=== PATIENT | female | born 1940 | race Caucasian/White ===

== ENCOUNTER → 2020-08-03 10:02 | Outpatient (BNVA) | payer MEDICARE, SELFPAY | PROVIDERS: PCP Family Medicine; Visit Provider Orthopaedic Surgery | DX: M65.332 Trigger finger, left middle finger (principal); M65.342 Trigger finger, left ring finger | CPT/HCPCS: 20550; 99202; J1100 ==

== ENCOUNTER 2020-08-19 10:49 | Outpatient (REF) | payer MEDICARE, SELFPAY ==
--- NOTE | 2020-08-19 10:52 | MM_ITS ---
EXAMINATION: MM SCREENING DIGITAL BREAST TOMOSYNTHESIS, BILATERAL CLINICAL INFORMATION: Screening. Asymptomatic. The lifetime risk of breast cancer based on the Tyrer-Cuzick Model is 3%. COMPARISON: Mammography: 05/21/2019, 05/02/2018, 04/12/2017 TECHNIQUE: Digital breast tomosynthesis is performed in both the craniocaudal and mediolateral oblique views along with computer-aided detection (CAD). Synthesized 2D images are generated from the tomosynthesis. Additional bilateral CC views are provided. FINDINGS: The breasts are almost entirely fatty (ACR BI-RADS breast composition Category a). Background stromal markings are similar to prior studies. There are no significant masses, abnormal calcifications, or other abnormalities. MM/MM tomosynthesis screening BI IMPRESSION: No mammographic evidence of malignancy. ASSESSMENT: BI-RADS 1: Negative RECOMMENDATION: Routine annual mammography screening. This patient's information was entered into a reminder system with a target due date for their next mammogram.
== END 2020-08-19 10:50 | disposition home or self-care (01) ==
LOC: HO.MAMMO 10:49
PROVIDERS: PCP Family Medicine; Visit Provider Family Medicine
DX: Z12.31 Encounter for screening mammogram for malignant neoplasm of breast (principal)
CPT/HCPCS: 77063; 77067

== ENCOUNTER → 2020-10-04 11:00 | Outpatient (BNVA) | payer MEDICARE, SELFPAY | PROVIDERS: PCP Family Medicine; Visit Provider Internal Medicine | DX: J44.9 Chronic obstructive pulmonary disease, unspecified (principal); G47.33 Obstructive sleep apnea (adult) (pediatric) | CPT/HCPCS: 99212 ==

== ENCOUNTER → 2020-10-27 09:54 | Outpatient (BNVA) | payer MEDICARE, SELFPAY | PROVIDERS: PCP Family Medicine; Visit Provider Internal Medicine Endocrinology, Diabetes & Metabolism | DX: M81.0 Age-related osteoporosis without current pathological fracture (principal) | CPT/HCPCS: 96402; 99212 ==

== ENCOUNTER → 2020-11-26 10:50 | Outpatient (BNVA) | payer MEDICARE, SELFPAY | PROVIDERS: PCP Family Medicine; Visit Provider Urology | DX: N32.81 Overactive bladder (principal) | CPT/HCPCS: 51798; 99212 ==

== ENCOUNTER → 2021-01-20 13:45 | Outpatient (BNVA) | payer MEDICARE, SELFPAY | PROVIDERS: PCP Family Medicine; Visit Provider Urology | DX: N32.81 Overactive bladder (principal) | CPT/HCPCS: 52000; 52287; 99212; J0585 ==

== ENCOUNTER → 2021-02-04 15:17 | Outpatient (BNVA) | payer MEDICARE, SELFPAY | PROVIDERS: PCP Family Medicine; Visit Provider Urology | DX: N32.81 Overactive bladder (principal) | CPT/HCPCS: 51798; 99212 ==

== ENCOUNTER 2021-03-22 13:48 | Outpatient (REF) | payer MEDICARE, SELFPAY ==
--- NOTE | ~2021-03-22 | MM_ITS ---
EXAMINATION: BONE DENSITOMETRY CLINICAL INDICATION: Postmenopausal. History of osteopenia. Other specified disorders of bone density and structure. COMPARISON: Previous BD dated 02/21/2019 and baseline BD dated 01/17/2013. TECHNIQUE: Using a [employer] DXA System (software version: 13.1) manufactured by [employer], dual-energy x-ray absorptiometry was performed of the lumbar spine and left hip. The images are of good technical quality. Summary results are attached. FINDINGS: AP SPINE L1-L4: Current: BMD 0.927 g/cm2, Z-score -0.6, T-score -2.1, osteopenia, 6.1% decrease from previous, 2.2% decrease from baseline (<5% change is not significant). Prior: BMD 0.987 g/cm2. Baseline: BMD 0.948 g/cm2. LEFT FEMUR, NECK: Current: BMD 0.736 g/cm2, Z-score -0.2, T-score -2.2, osteopenia. Prior: BMD 0.740 g/cm2. Baseline: BMD 0.714 g/cm2. LEFT FEMUR, TOTAL: Current: BMD 0.878 g/cm2, Z-score 0.7, T-score -1.0, normal, 1.7% increase from previous, 5.4% increase from baseline (<5% change is not significant). Prior: BMD 0.863 g/cm2. Baseline: BMD 0.833 g/cm2. IDENTIFIED RISK FACTORS: History of fracture, (adult). Low body weight. Height loss. Menopause. HISTORY OF FRACTURE: Other fractures (ribs). Wrist. MEDICATIONS: Prolia. Calcium or multivitamin. Vitamin D. MM/XR DEXA axial skeleton IMPRESSION: 1. DIAGNOSIS: Osteopenia based on the lowest T-score value of -2.2 in the femoral neck applying World Health Organization criteria. 2. 10-YEAR FRACTURE RISK PREDICTION, FRAX: Major osteoporotic fracture (clinical spine, forearm, hip or shoulder) 21.9%. Hip fracture 5.9%. 3. Treatment Recommendations: NOF guidelines recommend consideration for treatment in postmenopausal women and men age 50 and older presenting with the following: -A hip or vertebral (clinical or morphometric) fracture. -T-score less than or equal to -2.5 at the femoral neck or spine after appropriate evaluation to exclude secondary causes. -Low bone mass at the hip or spine and a 10-year fracture probability by FRAX of greater than or equal to 3% for hip fracture or greater than or equal to 20% for major osteoporotic fracture based on the [place] adapted WHO algorithm. 4. Other Recommendations: All treatment decisions require clinical judgment and consideration of individual patient factors, including patient preferences, comorbidities, previous drug use, risk factors not captured in the FRAX model (e.g. frailty, falls, vitamin D deficiency, increased bone turnover, interval significant decline in bone density) and possible under or overestimation of fracture risk by FRAX. Additional medical evaluation for secondary cause of low bone mineral density may be appropriate. FUTURE SCAN RECOMMENDATION: People with diagnosed cases of osteoporosis or at high risk for fracture should have regular bone mineral density tests. For patients eligible for Medicare, routine testing is allowed once every 2 years. The testing frequency can be increased to one year for patients who have rapidly progressing disease, those who are receiving or discontinuing medical therapy to restore bone mass, or have additional risk factors.
== END 2021-03-22 13:49 | disposition home or self-care (01) ==
LOC: HO.MAMMO 13:48
PROVIDERS: Visit Provider Internal Medicine Endocrinology, Diabetes & Metabolism
DX: Z13.820 Encounter for screening for osteoporosis (principal); M85.80 Other specified disorders of bone density and structure, unspecified site; M81.0 Age-related osteoporosis without current pathological fracture; Z78.0 Asymptomatic menopausal state; Z79.899 Other long term (current) drug therapy; Z87.81 Personal history of (healed) traumatic fracture
CPT/HCPCS: 77080

== ENCOUNTER → 2021-03-23 13:32 | Outpatient (BNVA) | payer MEDICARE, SELFPAY | PROVIDERS: PCP Family Medicine | DX: N32.81 Overactive bladder (principal) | CPT/HCPCS: 51798; 99212 ==

== ENCOUNTER → 2021-04-13 13:00 | Outpatient (BNVA) | payer MEDICARE, SELFPAY | PROVIDERS: PCP Family Medicine; Visit Provider Internal Medicine | DX: J44.9 Chronic obstructive pulmonary disease, unspecified (principal); G47.33 Obstructive sleep apnea (adult) (pediatric) | CPT/HCPCS: 99212 ==

== ENCOUNTER 2021-04-27 09:47 | Outpatient (REF) | payer MEDICARE, SELFPAY ==
[2021-04-27 12:35] LABS: Alanine Aminotransferase 14 U/L (0-31); Albumin Level 4.2 g/dL (3.5-5.0); Alkaline Phosphatase 76 U/L (39-117); Anion Gap 13 (12-20); Aspartate Amino Transferase 20 U/L (5-31); Blood Urea Nitrogen 12 mg/dL (9-16); Calcium 10.8 mg/dL (8.4-10.2); Carbon Dioxide 32 mmol/L (22-29); Chloride 100 mmol/L (96-108); Estimated Glomerular Filt Rate 59; Glucose Random 106 mg/dL (60-115); Phosphorus 4.1 mg/dL (2.7-4.5); Potassium 3.8 mmol/L (3.3-5.1); Sodium 141 mmol/L (135-145); Total Protein 7.4 g/dL (6.5-8.0)
[2021-04-27 13:09] LABS: Free T4 (Free Thyroxine) 1.18 ng/dL (0.71-1.85); Thyroid Stimulating Hormone 2.34 uIU/mL (0.32-4.0); Vitamin D 25-OH Total 74.9 ng/mL (>30)
[2021-04-29 12:12] LABS: Calcium (PTHI) 10.7 mg/dL (8.6-10.4); PTHI 17 pg/mL (14-64)
[2021-05-04 15:01] LABS: N-Telopeptide 23 (see note); NTXCreaRU 10 mg/dL (20-275)
== END 2021-04-27 09:48 | disposition home or self-care (01) ==
LOC: HO.LAB 09:47
PROVIDERS: PCP Family Medicine; Visit Provider Internal Medicine
DX: M81.0 Age-related osteoporosis without current pathological fracture (principal); E55.9 Vitamin D deficiency, unspecified; E04.9 Nontoxic goiter, unspecified; D47.2 Monoclonal gammopathy
CPT/HCPCS: 36415; 80053; 82306; 82523; 83970; 84100; 84439; 84443; 99212

== ENCOUNTER 2021-05-01 20:27 | Inpatient (IN) | payer MEDICARE, SELFPAY ==
--- NOTE | ~2021-05-01 | CT_ITS ---
EXAMINATION: CT ABDOMEN AND PELVIS WITHOUT CONTRAST CLINICAL INFORMATION: Rectal bleed with abdominal pain. Rule out colitis. COMPARISON: CT abdomen pelvis 10/17/2019 TECHNIQUE: Multidetector volumetric imaging was performed from the superior aspect of the liver through the pubic symphysis. Sagittal and coronal reformatted images were obtained on the technologist's workstation. This CT examination was performed using dose optimization techniques as appropriate, variously including the following: *Automated exposure control *Adjustment of mA and/or kV according to patient size (this includes techniques or standardized protocols for targeted exams where dose is matched to indication/reason for exam; i.e. extremities or head) *Use of iterative reconstruction technique DLP: 690 mGy-cm FINDINGS: LUNG BASES: There is focal consolidation/atelectatic changes left lower lobe medial basal segment and right lower lobe infrahilar segment. LIVER, GALLBLADDER, AND BILIARY TREE: The liver is normal in size, shape, and attenuation. No focal hepatic lesion or biliary ductal dilatation is present. There is solitary 1.8 cm laminated gallstone. No wall thickening seen. There are small additional radiopaque gallstones visualized. PANCREAS: Unremarkable. SPLEEN: Unremarkable. ADRENAL GLANDS: Unremarkable. KIDNEYS AND URETERS: The kidneys are normal in size, shape, and attenuation. No hydronephrosis, hydroureter, or calculi seen. No perinephric stranding. BLADDER: Unremarkable. GASTROINTESTINAL TRACT: There is scattered stool and scattered diverticuli and: Without obstruction or diverticulitis. The appendix appears surgically removed with a small staple along the cecum. The small bowel loops are normal caliber. ABDOMINAL WALL: No significant hernia is appreciated. LYMPH NODES: Normal. VASCULAR: Unremarkable. PELVIC VISCERA: There is no free air or free fluid. The uterus is anteverted and on unremarkable OSSEOUS STRUCTURES: There are degenerative disc changes with vacuum disc phenomena at L5-S1 and L4-L5 disc level. No lytic or sclerotic process seen. CT/CT abdomen pelvis wo con IMPRESSION: Diffuse sigmoid and scattered rest the colon diverticulosis. No evidence of diverticulitis or bowel obstruction. Gallstones without wall thickening.
[2021-05-01 20:43] VITALS: BP 133/77; BP 149/61; PULSE 96; PULSE 98; RESP 18; TEMP 36.9; O2SAT 94; O2SAT 98; BMI 34.8
--- NOTE | 2021-05-01 21:25 | ECG_ITS ---
Test Reason : FALL Blood Pressure : / mmHG Vent. Rate : 092 BPM Atrial Rate : 092 BPM P-R Int : 166 ms QRS Dur : 096 ms QT Int : 358 ms P-R-T Axes : 061 044 045 degrees QTc Int : 442 ms Normal sinus rhythm Nonspecific ST abnormality Abnormal ECG When compared with ECG of 19-OCT-2017 18:57, Premature atrial complexes are no longer Present Nonspecific T wave abnormality, improved in Lateral leads Referred By: Isidra Lieberman Electronically Signed By:JERZY BREWSTER
--- NOTE | 2021-05-01 21:29 | ED_ITS ---
HPI - GI Bleed General Chief complaint: GI Bleed Stated complaint: LOWER GI BLEED Time Seen by Provider: 05/01/21 21:24 Source: patient and EMS Mode of arrival: EMS Limitations: no limitations History of Present Illness HPI Narrative: 81-year-old female came in for evaluation of right blood broad per rectum x1 day. Patient noticed today after having a bowel movement bright red blood on a wiping toilet paper, no abdominal pains no cramps, no nausea, no vomiting, soft stool but no diarrhea, no fever, no chills, no dizziness, no chest pain, no shortness of breath. Patient declined being on anticoagulation medication. Related Data Home Medications Medication Instructions Recorded Confirmed albuterol sulfate 0.8333 mg PO PRN 08/03/20 04/27/21 amlodipine 10 mg tablet 10 mg PO DAILY 08/03/20 05/01/21 calcium carbonate 600 mg (1,500 1 tab PO BID 08/03/20 05/01/21 mg)-vitamin D3 200 unit tablet cholecalciferol (vitamin D3) 25 25 mcg PO DAILY 08/03/20 05/01/21 mcg (1,000 unit) capsule docusate sodium 100 mg capsule 100 mg PO BID 08/03/20 04/27/21 ferrous sulfate 325 mg (65 mg 325 mg PO BID 08/03/20 05/01/21 iron) tablet,delayed release furosemide 40 mg tablet 40 mg PO BID 08/03/20 05/01/21 lidocaine 5 % topical patch 1 patch TOPICAL DAILY 08/03/20 04/27/21 meclizine 12.5 mg tablet 12.5 mg PO BID-TID PRN 08/03/20 05/01/21 potassium chloride 10 mEq 10 meq PO BID 08/03/20 04/27/21 tablet,extended release(part/cryst) potassium chloride 10 mEq 10 meq PO BID 04/27/21 05/01/21 tablet,extended release tiotropium bromide 18 mcg capsule 1 cap PO DAILY 04/27/21 04/27/21 with inhalation device (Spiriva with HandiHaler) zafirlukast 20 mg tablet 20 mg PO BID 04/27/21 05/01/21 Previous Rx's Medication Instructions Recorded Breo Ellipta 100 mcg-25 mcg/dose 1 inh INHALATION DAILY 30 Days #28 11/16/20 powder for inhalation (fluticasone ea NS furoate-vilanterol) denosumab 60 mg/mL subcutaneous 60 mg SUBCUT [id number] #1 ml 04/06/21 syringe mirabegron 50 mg tablet,extended 50 mg PO DAILY 30 Days #30 tab 04/08/21 release 24 hr (Myrbetriq) Allergies Allergy/AdvReac Type Severity Reaction Status Date / Time sertraline [From ZOLOFT] AdvReac Intermediate AGITATION Verified 04/27/21 10:26 Review of Systems Review of Systems: All other systems are reviewed and are negative Constitutional: Reports as per HPI and Reports no additional constitutional complaints Eyes: Reports as per HPI and Reports no additional eye complaints Reports system reviewed and no additional complaints, except as documented Cardiovascular: Reports as per HPI and Reports no additional cardiovascular complaints Respiratory: Reports as per HPI and Reports no additional respiratory complaints Gastrointestinal: Reports as per HPI and Reports no additional gastrointestinal complaints Genitourinary: Reports no additional female genitourinary complaints Musculoskeletal: Reports no additional musculoskeletal complaints Skin/Breast: Reports system reviewed and no additional complaints, except as docu Psychiatric: Reports no additional psychiatric complaints Endocrine: Reports no additional endocrine complaints Hematologic/Lymphatic: Reports no additional hematologic/lymphatic complaints Allergic/Immunologic: Reports no additional allergic/immunologic complaints Reports system reviewed and no additional complaints, except as documented and Reports Abnormal speech present FOR[facility]LY [facility] Past Medical History Medical History Asthma COPD (chronic obstructive pulmonary disease) Goiter Hypertension CINDY (obstructive sleep apnea) Vitamin D deficiency Surgical History History of ear surgery History of eye surgery History of hernia surgery Family History Family History Mother Bone cancer Father No problems noted. Sister Colon cancer Bone cancer Breast cancer Brother Colon cancer Social History Social History Alcohol intake: never Patient Tobacco Use Status: Former Tobacco user Tobacco use type: Cigarette Cigarette Packs Per Day: 1 Years Smoked: 7 Advance Directives: No Advance Directives Information Provided: No Current occupational status: retired Current occupation: right handed Physical Exam Vital Signs: Vital Signs: Last Vital Signs Temp 98.4 F 05/01/21 20:43 Pulse 96 05/01/21 20:43 Resp 18 05/01/21 20:43 BP 149/61 H 05/01/21 20:43 Pulse Ox 94 05/01/21 20:43 Body Mass Index 34.8 Vital signs have been reviewed as appeared to be correct. Blood pressure normal. Heart rate normal. Respiration rate normal. Temperature normal. Oxygen saturation normal. Appearance: Alert. Oriented X3. No acute distress. Head: Normal external exam. Normocephalic. Atraumatic. No [place] signs noted. No raccoon eyes noted Eyes: PERRLA. EOMI. Conjunctiva and sclera normal. Eyelids normal. ENT: TM's Normal. Pharynx normal. Uvula midline. Moist mucous membranes. No trismus noted. No drooling noted. No muffled voice noted. Neck: Normal inspection. Neck supple. FROM. No adenopathy. Thyroid Normal. No meningeal signs. No neck mass noted. CVS: Normal heart rate and rhythm. Heart sound normal. No murmurs noted. Pulses normal throughout. Respiratory: No respiratory distress. Painless inspiration. Breath sounds normal. No wheezes/rales/rhonchi noted. Chest nontender. No accessory muscle usage noted or decreased air movement noted. Abdomen: Soft and nontender. Bowel sounds normal in all 4 quadrants. No distention noted. No organomegaly noted. No visible injury noted. Rectal exam: No external/internal hemorrhoid, bright red blood stool in the rec damion with small blood clots. Back: No CVA tenderness. Full range of motion noted. Skin: Skin warm and dry. Normal skin color. Normal skin turgor. No rashes/lesions/lacerations noted. Extremities: No lower extremity edema. Extremities exhibit normal range of motion. Extremities nontender. Neuro: Oriented X 3. Cranial nerve exam: II-XII are grossly intact No motor deficit. No sensory deficit. Reflexes normal. Course Course Course Narrative: Assessment and plan. 81-year-old female came in for evaluation of her rectal bleed. Patient hemodynamically stable, CT of the abdomen pelvis just significant for diverticulosis without diverticulitis. Patient in no need for blood transfusion at this point, will admit the patient for further GI evaluation. MDM - GI Bleed Lab Data Attestation: I reviewed the patient's lab results. Result diagrams: 05/01/21 21:55 05/01/21 21:55 Labs: Lab Results 05/01/21 05/01/21 05/01/21 Range/Units 21:51 21:55 21:55 WBC 9.0 (4.8-10.8) X10*3/uL RBC 4.11 L (4.20-5.50) X10*6/uL Hgb 12.3 (12.0-16.0) g/dl Hct 37.0 (37-47) % MCV 90.0 (80-98) fL MCH 29.9 (27.0-33.0) pg MCHC 33.2 (31.0-35.0) g/dl RDW 12.6 (11.0-16.0) % Plt Count 199 (160-400) X10*3/uL MPV 9.7 (9.4-12.3) fL Immature Gran % (Auto) 0.4 (0.0-0.4) % Neut % (Auto) 62.6 (45-73) % Lymph % (Auto) 24.6 (20-40) % [place] % (Auto) 11.1 H (2-11) % Eos % (Auto) 1.1 (0-4) % Baso % (Auto) 0.2 (0-2) % Lymph # (Auto) 2.2 (1.2-4.9) X10*3/uL [place] # (Auto) 1.0 (0.1-1.2) X10*3/uL Eos # (Auto) 0.1 (0.0-0.4) X10*3/uL Baso # (Auto) 0.0 (0.0-0.2) X10*3/uL Abs Immat Gran (auto) 0.04 H (0.00-0.03) X10*3/uL Absolute Neuts (auto) 5.6 (2.0-8.3) X10*3/uL Absolute Nucleated RBC 0.000 (0.0-0.012) X10*3/uL Nucleated RBC % (auto) 0.0 (0.0-0.2) /100WBC Whole Blood PT 13.2 (11.1-13.5) sec Whole Blood INR 1.1 (0.9-1.1) Sodium 141 (135-145) mmol/L Potassium 3.4 (3.3-5.1) mmol/L Chloride 100 (96-108) mmol/L Carbon Dioxide 30 H (22-29) mmol/L Anion Gap 14 (12-20) BUN 13 (9-16) mg/dL Creatinine 0.86 (0.5-1.4) mg/dL Estim Creat Clear Calc 43.1 Estimated GFR > 60 Random Glucose 98 (60-115) mg/dL Calcium 10.0 D (8.4-10.2) mg/dL Total Bilirubin 0.6 (0.0-1.0) mg/dL Direct Bilirubin 0.3 (0.0-0.5) mg/dL AST 21 (5-31) U/L ALT 13 (0-31) U/L Alkaline Phosphatase 72 (39-117) U/L Troponin I High Sens (<3.5-17.0) ng/L B-Natriuretic Peptide (<100) pg/mL Total Protein 6.9 (6.5-8.0) g/dL Albumin 4.0 (3.5-5.0) g/dL Lipase 38 (8-78) U/L 05/01/21 05/01/21 Range/Units 21:55 21:55 WBC (4.8-10.8) X10*3/uL RBC (4.20-5.50) X10*6/uL Hgb (12.0-16.0) g/dl Hct (37-47) % MCV (80-98) fL MCH (27.0-33.0) pg MCHC (31.0-35.0) g/dl RDW (11.0-16.0) % Plt Count (160-400) X10*3/uL MPV (9.4-12.3) fL Immature Gran % (Auto) (0.0-0.4) % Neut % (Auto) (45-73) % Lymph % (Auto) (20-40) % [place] % (Auto) (2-11) % Eos % (Auto) (0-4) % Baso % (Auto) (0-2) % Lymph # (Auto) (1.2-4.9) X10*3/uL [place] # (Auto) (0.1-1.2) X10*3/uL Eos # (Auto) (0.0-0.4) X10*3/uL Baso # (Auto) (0.0-0.2) X10*3/uL Abs Immat Gran (auto) (0.00-0.03) X10*3/uL Absolute Neuts (auto) (2.0-8.3) X10*3/uL Absolute Nucleated RBC (0.0-0.012) X10*3/uL Nucleated RBC % (auto) (0.0-0.2) /100WBC Whole Blood PT (11.1-13.5) sec Whole Blood INR (0.9-1.1) Sodium (135-145) mmol/L Potassium (3.3-5.1) mmol/L Chloride (96-108) mmol/L Carbon Dioxide (22-29) mmol/L Anion Gap (12-20) BUN (9-16) mg/dL Creatinine (0.5-1.4) mg/dL Estim Creat Clear Calc Estimated GFR Random Glucose (60-115) mg/dL Calcium (8.4-10.2) mg/dL Total Bilirubin (0.0-1.0) mg/dL Direct Bilirubin (0.0-0.5) mg/dL AST (5-31) U/L ALT (0-31) U/L Alkaline Phosphatase (39-117) U/L Troponin I High Sens 5.4 (<3.5-17.0) ng/L B-Natriuretic Peptide 45 (<100) pg/mL Total Protein (6.5-8.0) g/dL Albumin (3.5-5.0) g/dL Lipase (8-78) U/L Imaging Data CT scan - abdomen: Radiologist's impression: Diffuse sigmoid and scattered rest the colon diverticulosis. No evidence of diverticulitis or bowel obstruction. ? Gallstones without wall thickening. ECG Data Attestation: I personally reviewed and interpreted this ECG as follows: Interpretation: Normal sinus rhythm at 92 beats per minutes, normal intervals, normal axis deviation, no ST-T changes. Discharge Plan Discharge Clinical Impression: Acute GI bleeding Patient Disposition: Admitted As Inpatient Prescriptions: No Action Breo Ellipta 100-25 mcg/dose blister with device 1 inh inhalation DAILY 30 Days Qty: 28 RF: 2 denosumab 60 mg/mL syringe 60 mg subcut [id number] Qty: 1 RF: 1 Myrbetriq 50 mg tablet extended release 24 hr 50 mg PO DAILY 30 Days Qty: 30 RF: 1 calcium carbonate-vitamin D3 600 mg(1,500mg) -200 unit tablet 1 tab PO BID RF: 0 lidocaine 5 % adhesive patch,medicated 1 patch topical DAILY RF: 0 ferrous sulfate 325 mg (65 mg iron) tablet,delayed release (DR/EC) 325 mg PO BID RF: 0 cholecalciferol (vitamin D3) 25 mcg (1,000 unit) capsule 25 mcg PO DAILY RF: 0 meclizine 12.5 mg tablet 12.5 mg PO BID-TID PRN (Reason: dizziness) RF: 0 amlodipine 10 mg tablet 10 mg PO DAILY RF: 0 potassium chloride 10 mEq tablet,ER particles/crystals 10 meq PO BID RF: 0 docusate sodium 100 mg capsule 100 mg PO BID RF: 0 albuterol sulfate 2.5 mg /3 mL (0.083 %) solution for nebulization 0.8333 mg PO PRN (Reason: Shortness Of Breath) RF: 0 furosemide 40 mg tablet 40 mg PO BID RF: 0 potassium chloride 10 mEq tablet extended release 10 meq PO BID RF: 0 zafirlukast 20 mg tablet 20 mg PO BID RF: 0 Spiriva with HandiHaler 18 mcg capsule, w/inhalation device 1 cap PO DAILY RF: 0
[2021-05-01 21:55] LABS: Prothrombin Time Whole Bld POC 13.2 sec (11.1-13.5); ~PT, ~INR - Anti Coag Clinic 1.1 (0.9-1.1)
[2021-05-01 22:00] LABS: MANUAL DIFF FLAG NO
[2021-05-01 22:01] LABS: Basophils Percent Auto 0.2 % (0-2); Eosinophils Absolute Auto 0.1 X10*3/uL (0.0-0.4); Eosinophils Percent Auto 1.1 % (0-4); Hemoglobin 12.3 g/dl (12.0-16.0); Imm Gran Abs Auto 0.04 X10*3/uL (0.00-0.03); Imm Gran Pct Auto 0.4 % (0.0-0.4); Lymphocytes Absolute Auto 2.2 X10*3/uL (1.2-4.9); Lymphocytes Percent Auto 24.6 % (20-40); Mean Corpuscular HGB Conc 33.2 g/dl (31.0-35.0); Mean Corpuscular Hemoglobin 29.9 pg (27.0-33.0); Mean Platelet Volume 9.7 fL (9.4-12.3); Monocytes Percent Auto 11.1 % (2-11); Neutrophils Absolute Auto 5.6 X10*3/uL (2.0-8.3); Neutrophils Percent Auto 62.6 % (45-73); Platelet Count 199 X10*3/uL (160-400); Red Blood Count 4.11 X10*6/uL (4.20-5.50); Red Cell Distribution Width 12.6 % (11.0-16.0)
[2021-05-01 22:19] LABS: Alanine Aminotransferase 13 U/L (0-31); Alkaline Phosphatase 72 U/L (39-117); Anion Gap 14 (12-20); Aspartate Amino Transferase 21 U/L (5-31); Bilirubin Direct 0.3 mg/dL (0.0-0.5); Bilirubin Total 0.6 mg/dL (0.0-1.0); Blood Urea Nitrogen 13 mg/dL (9-16); Carbon Dioxide 30 mmol/L (22-29); Chloride 100 mmol/L (96-108); Creatinine Clr Calc Pharmacy 43.1; Estimated Glomerular Filt Rate > 60; Glucose Random 98 mg/dL (60-115); Lipase 38 U/L (8-78); Potassium 3.4 mmol/L (3.3-5.1); Sodium 141 mmol/L (135-145); Total Protein 6.9 g/dL (6.5-8.0)
[2021-05-01 22:24] LABS: B Type Natriuretic Peptide 45 pg/mL (<100); Troponin-I High Sensitivity 5.4 ng/L (<3.5-17.0)
[2021-05-01 22:32] VITALS: BP 153/63; PULSE 88; RESP 18; TEMP 36.6; O2SAT 94
[2021-05-01 22:33] VITALS: BP 158/68; PULSE 87
--- NOTE | 2021-05-01 22:34 | P.HPHOSP_ITS ---
History of Present Illness Date of Service: 05/01/21 Chief Complaint: Bright red blood per rectum 81-year-old female with a past medical history of COPD, CINDY, osteoarthritis, IgG gammopathy, vitamin-D deficiency, goiter, overactive bladder presented to the hospital with a chief complaint of bright red blood per rectum. Patient mentioned that she noticed bright red blood per rectum today; did not have any episodes yesterday. Mentioned she had few episodes prior to come to the hospital. Did not have any further episodes after she came to ER. Denies any lightheadedness dizziness. Denies any falls or syncope. Denies any chest pain palpitations. Denies any abdominal discomfort. Denies being taking any anticoagulants. Review of all other systems is negative except mentioned above ER course: Per ER team patient's exam was nonfocal; on labs hygiene is stable; vitals stable. On rectal exam noted to have clots in the rectal wart; did not appreciate hemorrhoids. Guaiac positive. Admitted for further management. REPLACED BY [facility] Medical History Asthma COPD (chronic obstructive pulmonary disease) Goiter Hypertension CINDY (obstructive sleep apnea) Vitamin D deficiency Family History Mother Bone cancer Father No problems noted. Sister Colon cancer Bone cancer Breast cancer Brother Colon cancer Pertinent family history: As mentioned above Surgical History History of ear surgery History of eye surgery History of hernia surgery Social History Alcohol intake: never Patient Tobacco Use Status: Former Tobacco user Tobacco use type: Cigarette Cigarette Packs Per Day: 1 Years Smoked: 7 Advance Directives: No Advance Directives Information Provided: No Current occupational status: retired Current occupation: right handed Meds Allergies Allergy/AdvReac Type Severity Reaction Status Date / Time sertraline [From ZOLOFT] AdvReac Intermediate AGITATION Verified 04/27/21 10:26 Home Medications Medication Instructions Recorded Confirmed Last Taken Type albuterol sulfate 0.8333 mg PO PRN 08/03/20 04/27/21 Unknown History amlodipine 10 mg tablet 10 mg PO DAILY 08/03/20 05/01/21 Unknown History calcium carbonate 600 mg (1,500 1 tab PO BID 08/03/20 05/01/21 Unknown History mg)-vitamin D3 200 unit tablet cholecalciferol (vitamin D3) 25 25 mcg PO DAILY 08/03/20 05/01/21 Unknown History mcg (1,000 unit) capsule docusate sodium 100 mg capsule 100 mg PO BID 08/03/20 04/27/21 Unknown History ferrous sulfate 325 mg (65 mg 325 mg PO BID 08/03/20 05/01/21 Unknown History iron) tablet,delayed release furosemide 40 mg tablet 40 mg PO BID 08/03/20 05/01/21 Unknown History lidocaine 5 % topical patch 1 patch TOPICAL DAILY 08/03/20 04/27/21 Unknown History meclizine 12.5 mg tablet 12.5 mg PO BID-TID PRN 08/03/20 05/01/21 Unknown History potassium chloride 10 mEq 10 meq PO BID 08/03/20 04/27/21 Unknown History tablet,extended release(part/cryst) potassium chloride 10 mEq 10 meq PO BID 04/27/21 05/01/21 Unknown History tablet,extended release tiotropium bromide 18 mcg capsule 1 cap PO DAILY 04/27/21 04/27/21 Unknown History with inhalation device (Spiriva with HandiHaler) zafirlukast 20 mg tablet 20 mg PO BID 04/27/21 05/01/21 Unknown History Physical Exam Vital Signs and Narrative: Vital Signs: Last Vital Signs Temp 97.8 F 05/01/21 22:32 Pulse 88 05/01/21 22:32 Resp 18 05/01/21 22:32 BP 153/63 H 05/01/21 22:32 Pulse Ox 94 05/01/21 22:32 Body Mass Index 34.8 Gen: Appears be in no acute distress HEENT: NCAT, Moist mucosa. Pulmonary: Vesicular breath sounds, fair air entry CVS: Normal S1-S2 Abdomen: BS+, Soft, Nontender Extremities: Warm well perfused Neuro: Alert and awake. Results Labs CBC and Chem 7: 05/01/21 21:55 05/01/21 21:55 Labs: Laboratory Results - last 24 hr 05/01/21 05/01/21 05/01/21 21:51 21:55 21:55 MCV 90.0 MCH 29.9 MCHC 33.2 RDW 12.6 Plt Count 199 MPV 9.7 Immature Gran % (Auto) 0.4 Neut % (Auto) 62.6 Lymph % (Auto) 24.6 [place] % (Auto) 11.1 H Eos % (Auto) 1.1 Baso % (Auto) 0.2 Lymph # (Auto) 2.2 [place] # (Auto) 1.0 Eos # (Auto) 0.1 Baso # (Auto) 0.0 Abs Immat Gran (auto) 0.04 H Absolute Neuts (auto) 5.6 Absolute Nucleated RBC 0.000 Nucleated RBC % (auto) 0.0 Whole Blood PT 13.2 Whole Blood INR 1.1 Anion Gap 14 Estim Creat Clear Calc 43.1 Estimated GFR > 60 Random Glucose 98 Calcium 10.0 D Total Bilirubin 0.6 Direct Bilirubin 0.3 AST 21 ALT 13 Alkaline Phosphatase 72 Troponin I High Sens B-Natriuretic Peptide Total Protein 6.9 Albumin 4.0 Lipase 38 05/01/21 05/01/21 21:55 21:55 MCV MCH MCHC RDW Plt Count MPV Immature Gran % (Auto) Neut % (Auto) Lymph % (Auto) [place] % (Auto) Eos % (Auto) Baso % (Auto) Lymph # (Auto) [place] # (Auto) Eos # (Auto) Baso # (Auto) Abs Immat Gran (auto) Absolute Neuts (auto) Absolute Nucleated RBC Nucleated RBC % (auto) Whole Blood PT Whole Blood INR Anion Gap Estim Creat Clear Calc Estimated GFR Random Glucose Calcium Total Bilirubin Direct Bilirubin AST ALT Alkaline Phosphatase Troponin I High Sens 5.4 B-Natriuretic Peptide 45 Total Protein Albumin Lipase Imaging Radiologist's Impressions: Impressions Abdomen/Pelvis CT 05/01/21 21:24 IMPRESSION: Diffuse sigmoid and scattered rest the colon diverticulosis. No evidence of diverticulitis or bowel obstruction. Gallstones without wall thickening. Assessment and Plan (1) GI bleed: Status: Acute 81-year-old female with a past medical history of COPD, CINDY, osteoarthritis, IgG gammopathy, vitamin-D deficiency, goiter, overactive bladder presented to the hospital with a chief complaint of bright red blood per rectum. GI bleed: Serial H&H Pantoprazole GI consult NPO IV fluids History of COPD: Stable. DuoNebs p.r.n. DVT prophylaxis: SCD boots Code status: Full code Quality Stroke Does the patient have a stroke diagnosis?: No VTE Prior VTE?: No VTE Risk Level:: Medical - moderate - high VTE Device Contraindication: N/A - Device Ordered VTE Drug Contraindication: Treatment Not Indicated
[2021-05-01 22:35] VITALS: BP 143/59; PULSE 87
[2021-05-01 22:37] VITALS: BP 156/62; PULSE 88
[2021-05-01] MEDS: Dextrose 5 % and 0.45 % NaCl 1,000 ML 50 ML IVCONT (22:48)
[2021-05-01 22:55] LABS: Appearance Urine CLEAR; Color Urine YELLOW; Glucose Urine UA NEG (NEG); Leukocyte Esterase Urine TRACE (NEG); Nitrite Urine NEG (NEG); Specific Gravity - Urine 1.015 (1.005-1.025); UACC Culture Trigger YES; Urine Blood 1+ (NEG); Urine Ketones NEG (NEG); Urine Protein NEG (NEG-TRACE)
[2021-05-01 23:03] LABS: Amorphous Sediment Urine 1+ /LPF; Bacteria Urine 2+ /LPF; COVID-19 Test Negative (Negative); Mucus Urine 1+ /LPF; Squamous Epithelial Cell Urine 2+ /LPF
--- NOTE | 2021-05-01 23:38 | PC.NURSE ---
ORDER FOR PT INR/PTT AT [address] SHAY.
[2021-05-02 00:20] LABS: OBS Int Ctl Valid YES; OBS1 POSITIVE (NEGATIVE)
--- NOTE | 2021-05-02 00:27 | PC.NURSE ---
This RN resumed care of this patient @ 2330. Pt found resting in bed, fluids free hanging despite order for 50 ml/hr. PT/INR not sent (cancelled by this RN per verbal order from MD). Med Rec not completed by previous RN. Pt not on traffic monitor specialist despite order for telemetry. Pt requesting an IV in a different location as current location (left AC) is uncomfortable for patient while playing on tablet. Second IV line established per request. Pt aware of plan to admit, waiting to give report.
--- NOTE | 2021-05-02 00:47 | PC.NURSE ---
Report given to Jorge MOONEY
[2021-05-02 01:12] VITALS: BMI 35.0
[2021-05-02 01:49] VITALS: BP 174/77; PULSE 84; RESP 18; TEMP 36; O2SAT 93
[2021-05-02 04:00] VITALS: BP 119/44; PULSE 78; RESP 18; TEMP 37; O2SAT 92
[2021-05-02] MEDS: Pantoprazole Sodium 40 MG/10 ML VIAL IVPUSH (05:24)
[2021-05-02 05:43] LABS: MANUAL DIFF FLAG NO
[2021-05-02 05:49] LABS: Basophils Percent Auto 0.2 % (0-2); Eosinophils Absolute Auto 0.1 X10*3/uL (0.0-0.4); Eosinophils Percent Auto 2.2 % (0-4); Hematocrit 34.6 % (37-47); Hemoglobin 11.3 g/dl (12.0-16.0); Imm Gran Abs Auto 0.02 X10*3/uL (0.00-0.03); Imm Gran Pct Auto 0.3 % (0.0-0.4); Lymphocytes Absolute Auto 2.3 X10*3/uL (1.2-4.9); Lymphocytes Percent Auto 35.9 % (20-40); Mean Corpuscular HGB Conc 32.7 g/dl (31.0-35.0); Mean Corpuscular Hemoglobin 29.6 pg (27.0-33.0); Mean Corpuscular Volume 90.6 fL (80-98); Mean Platelet Volume 9.9 fL (9.4-12.3); Monocytes Absolute Auto 0.8 X10*3/uL (0.1-1.2); Neutrophils Absolute Auto 3.2 X10*3/uL (2.0-8.3); Neutrophils Percent Auto 49.4 % (45-73); Platelet Count 179 X10*3/uL (160-400); Red Blood Count 3.82 X10*6/uL (4.20-5.50); Red Cell Distribution Width 12.6 % (11.0-16.0); White Blood Count 6.4 X10*3/uL (4.8-10.8)
[2021-05-02 06:02] LABS: Anion Gap 9 (12-20); Blood Urea Nitrogen 10 mg/dL (9-16); Calcium 8.9 mg/dL (8.4-10.2); Carbon Dioxide 33 mmol/L (22-29); Chloride 104 mmol/L (96-108); Creatinine Clr Calc Pharmacy 47.7; Estimated Glomerular Filt Rate > 60; Glucose Random 94 mg/dL (60-115); Sodium 143 mmol/L (135-145)
[2021-05-02 06:07] LABS: Magnesium 2.1 mg/dL (1.6-2.6)
[2021-05-02 07:34] VITALS: BP 124/59; PULSE 66; RESP 18; TEMP 36.4; O2SAT 97
[2021-05-02] MEDS: Lactated Ringers 1,000 ML 80 ML IVCONT (10:33)
[2021-05-02] MEDS: Mirabegron 50 MG TAB.ER.24H PO (10:33)
[2021-05-02] MEDS: Cholecalciferol (Vitamin D3) 25 MCG TABLET PO (10:33)
[2021-05-02] MEDS: 0.9 % Sodium Chloride Flush 3 ML SYRINGE IVFLUSH (10:33)
[2021-05-02 11:18] VITALS: BP 141/65; PULSE 78; RESP 18; TEMP 36.6; O2SAT 93
--- NOTE | 2021-05-02 11:28 | P.PNIM_ITS ---
Subjective Subjective Date of Service: 05/02/21 Interval History: cc: brbpr interval history: no bleeding today Cardiovascular Cardiovascular: Reports no additional cardiovascular complaints Respiratory Respiratory: Reports no additional respiratory complaints Physical Exam Vital Signs: Vital Signs: Last Vital Signs Temp 97.8 F 05/02/21 11:18 Pulse 78 05/02/21 11:18 Resp 18 05/02/21 11:18 BP 141/65 H 05/02/21 11:18 Pulse Ox 93 05/02/21 11:18 Body Mass Index 35.0 General: AO X 3, no acute distress Resp: CTA bilateral, no accessory muscles used CVS: S1,S2,RRR GI: soft, non tender, non distended Neuro: motor grossly intact, alert Psych: appropriate affect, appropriate insight Objective Data Active Medications Acetaminophen (Acetaminophen 325 Mg Tablet) 650 mg PO Q6H PRN PRN Reason: Pain, Mild (Pain Scale 1-3) Albuterol/Ipratropium (Albuterol/Iprat 2.5/0.5mg 3 Ml Ampul.Neb) 3 ml INHALE Q4H PRN PRN Reason: Shortness of Breath/Wheezing Fluticasone/Vilanterol (Fluticasone/Vilanterol 100/25 Blst.W.Dev) 1 puff INHALE DAILY [facility] Last Admin: 05/02/21 07:48 Dose: Not Given Documented by: NIMO Non-Admin Reason: Med Not Available Lactated Ringer's (Lr) 1,000 mls @ 80 mls/hr IVCONT .[id number] [facility] Last Admin: 05/02/21 10:33 Dose: 80 mls/hr Documented by: LORENZO Meclizine HCl (Meclizine Hcl 12.5 Mg Tablet) 12.5 mg PO TID PRN PRN Reason: dizziness Melatonin (Melatonin 3 Mg Tablet) 6 mg PO BEDTIME PRN PRN Reason: Insomnia Mirabegron (Mirabegron 50 Mg Tab.Er.24h) 50 mg PO DAILY [facility] Last Admin: 05/02/21 10:33 Dose: 50 mg Documented by: LORENZO Senna (Sennosides 8.6 Mg Tablet) 17.2 mg PO BEDTIME PRN PRN Reason: Constipation Sodium Chloride (0.9 % Sodium Chloride Flush 3 Ml Syringe) 3 ml IVFLUSH QSHIFT [facility] Last Admin: 05/02/21 10:33 Dose: 3 ml Documented by: LORENZO Vitamin D (Cholecalciferol (Vitamin D3) 25 Mcg Tablet) 25 mcg PO DAILY [facility] Last Admin: 05/02/21 10:33 Dose: 25 mcg Documented by: LORENZO Labs CBC & Chem 7: 05/02/21 05:37 05/02/21 05:37 Labs: Laboratory Results - last 24 hr 05/01/21 05/01/21 05/01/21 21:51 21:55 21:55 MCV 90.0 MCH 29.9 MCHC 33.2 RDW 12.6 Plt Count 199 MPV 9.7 Immature Gran % (Auto) 0.4 Neut % (Auto) 62.6 Lymph % (Auto) 24.6 [place] % (Auto) 11.1 H Eos % (Auto) 1.1 Baso % (Auto) 0.2 Lymph # (Auto) 2.2 [place] # (Auto) 1.0 Eos # (Auto) 0.1 Baso # (Auto) 0.0 Abs Immat Gran (auto) 0.04 H Absolute Neuts (auto) 5.6 Absolute Nucleated RBC 0.000 Nucleated RBC % (auto) 0.0 Whole Blood PT 13.2 Whole Blood INR 1.1 Anion Gap 14 Estim Creat Clear Calc 43.1 Estimated GFR > 60 Random Glucose 98 Calcium 10.0 D Magnesium Total Bilirubin 0.6 Direct Bilirubin 0.3 AST 21 ALT 13 Alkaline Phosphatase 72 Troponin I High Sens B-Natriuretic Peptide Total Protein 6.9 Albumin 4.0 Lipase 38 Urine Color Urine Appearance Urine pH Ur Specific [place] Urine Protein Urine Glucose (UA) Urine Ketones Urine Blood Urine Nitrite Ur Leukocyte Esterase Urine RBC Urine WBC Ur Squamous Epith Cells Amorphous Sediment Urine Bacteria Urine Mucus Stool Occult Blood COVID-19 (GOGO) COVID-19 Clin Com 05/01/21 05/01/21 05/01/21 21:55 21:55 22:41 MCV MCH MCHC RDW Plt Count MPV Immature Gran % (Auto) Neut % (Auto) Lymph % (Auto) [place] % (Auto) Eos % (Auto) Baso % (Auto) Lymph # (Auto) [place] # (Auto) Eos # (Auto) Baso # (Auto) Abs Immat Gran (auto) Absolute Neuts (auto) Absolute Nucleated RBC Nucleated RBC % (auto) Whole Blood PT Whole Blood INR Anion Gap Estim Creat Clear Calc Estimated GFR Random Glucose Calcium Magnesium Total Bilirubin Direct Bilirubin AST ALT Alkaline Phosphatase Troponin I High Sens 5.4 B-Natriuretic Peptide 45 Total Protein Albumin Lipase Urine Color Urine Appearance Urine pH Ur Specific [place] Urine Protein Urine Glucose (UA) Urine Ketones Urine Blood Urine Nitrite Ur Leukocyte Esterase Urine RBC Urine WBC Ur Squamous Epith Cells Amorphous Sediment Urine Bacteria Urine Mucus Stool Occult Blood COVID-19 (GOGO) Negative COVID-19 Clin Com See Note 05/01/21 05/02/21 05/02/21 22:41 00:14 05:37 MCV 90.6 MCH 29.6 MCHC 32.7 RDW 12.6 Plt Count 179 MPV 9.9 Immature Gran % (Auto) 0.3 Neut % (Auto) 49.4 Lymph % (Auto) 35.9 [place] % (Auto) 12.0 H Eos % (Auto) 2.2 Baso % (Auto) 0.2 Lymph # (Auto) 2.3 [place] # (Auto) 0.8 Eos # (Auto) 0.1 Baso # (Auto) 0.0 Abs Immat Gran (auto) 0.02 Absolute Neuts (auto) 3.2 Absolute Nucleated RBC 0.000 Nucleated RBC % (auto) 0.0 Whole Blood PT Whole Blood INR Anion Gap Estim Creat Clear Calc Estimated GFR Random Glucose Calcium Magnesium Total Bilirubin Direct Bilirubin AST ALT Alkaline Phosphatase Troponin I High Sens B-Natriuretic Peptide Total Protein Albumin Lipase Urine Color YELLOW Urine Appearance CLEAR Urine pH 7.0 Ur Specific [place] 1.015 Urine Protein NEG Urine Glucose (UA) NEG Urine Ketones NEG Urine Blood 1+ H Urine Nitrite NEG Ur Leukocyte Esterase TRACE H Urine RBC 1-4 Urine WBC 1-4 Ur Squamous Epith Cells 2+ Amorphous Sediment 1+ Urine Bacteria 2+ Urine Mucus 1+ Stool Occult Blood POSITIVE COVID-19 (GOGO) COVID-19 [employer] Com 05/02/21 05/02/21 05:37 05:37 MCV MCH MCHC RDW Plt Count MPV Immature Gran % (Auto) Neut % (Auto) Lymph % (Auto) [place] % (Auto) Eos % (Auto) Baso % (Auto) Lymph # (Auto) [place] # (Auto) Eos # (Auto) Baso # (Auto) Abs Immat Gran (auto) Absolute Neuts (auto) Absolute Nucleated RBC Nucleated RBC % (auto) Whole Blood PT Whole Blood INR Anion Gap 9 L Estim Creat Clear Calc 47.7 Estimated GFR > 60 Random Glucose 94 Calcium 8.9 D Magnesium 2.1 Total Bilirubin Direct Bilirubin AST ALT Alkaline Phosphatase Troponin I High Sens B-Natriuretic Peptide Total Protein Albumin Lipase Urine Color Urine Appearance Urine pH Ur Specific [place] Urine Protein Urine Glucose (UA) Urine Ketones Urine Blood Urine Nitrite Ur Leukocyte Esterase Urine RBC Urine WBC Ur Squamous Epith Cells Amorphous Sediment Urine Bacteria Urine Mucus Stool Occult Blood COVID-19 (GOGO) COVID-19 Clin Com Assessment and Plan (1) GI bleed: Status: Acute (2) COPD (chronic obstructive pulmonary disease): Status: Acute Assessment and Plan: 81F presented with BRBPR acute blood loss anemia due to GI bleed suspect diverticular hgb dropped from 12.3 to 11.3 monitor cbc continue clear liquids for now, follow up GI severe copd not on home o2, breo, nebs as needed, stable chronic lower extremity edema holding lasix htn holding amlodipine Quality Stroke Does the patient have a stroke diagnosis?: No VTE Prior VTE?: No VTE Risk Level:: Medical - moderate - high VTE Device Contraindication: N/A - Device Ordered VTE Drug Contraindication: Treatment Not Indicated
--- NOTE | 2021-05-02 13:25 | PHA.MEDREC ---
Pharmacy Consult ? Medication Reconciliation Pharmacy has completed the medication reconciliation.
--- NOTE | 2021-05-02 15:27 | MHC.SHP ---
Pre-Procedural Eval Section A Date of Service: 05/02/21 The patient is an INPATIENT: No Changes since office visit: No Cold of Flu in the past 2 weeks, No New Medical Problems, No Changes in Medication and No Patient answered all questions The History & Physical has been completed within 30 days and I have reviewed it.: Yes Section B Chief Complaint: GI Bleed Allergies: Allergies Allergy/AdvReac Type Severity Reaction Status Date / Time sertraline [From ZOLOFT] AdvReac Intermediate AGITATION Verified 04/27/21 10:26 Plan I have reviewed the history and physical and performed a pertinent physical examination on my patient. No changes have occurred unless specified.
[2021-05-02 15:36] VITALS: BP 162/73; PULSE 82; RESP 18; TEMP 36.7; O2SAT 93
[2021-05-02] MEDS: PEG 3350/Na Sulf,Bicarb,Cl/KCL 4,000 ML SOLN.RECON 4000 ML PO (16:12)
--- NOTE | 2021-05-02 16:13 | MHC.CM.PN ---
CM MET WITH PT WHO REPORTS SHE LIVES ALONE AND HAS A ENGRAVER SIGNATURE 3X/WEEK WHO ASSISTS WITH HOUSEWORK, SHOPPING, AND BATHS. PT ALSO REPORTS BEING ACTIVE WITH A VNA, SHE THINKS IT IS [facility] (NOW KNOWN [facility]) REFERRAL SENT TO CONFIRM. PT REPORTS SHE HAS A ROLLATOR, CANE, NEBS, SHOWER CHAIR, AND COMMODE AT HOME. PT HAS A HCP ON FILE PT SAYS HER PCP IS RICCI LATHAM AT [facility]. IMM DELIVERED CURRENT DC PLAN IS HOME WITH RESUMPTION OF SERVICES TRANSPORTATION VIA FRIEND VS CHAIR VAN
[2021-05-02 19:51] VITALS: BP 173/78; PULSE 87; RESP 18; TEMP 36.3; O2SAT 98
[2021-05-03] VITALS (11 sets, daily range): BP systolic 132–170; BP diastolic 50–98; PULSE 76–89; RESP 16–20; TEMP 36.2–36.8; O2SAT 90–99
[2021-05-03] MEDS: 0.9 % Sodium Chloride Flush 3 ML SYRINGE IVFLUSH ×4 (00:47→21:54)
--- NOTE | 2021-05-03 03:04 | CONS_ITS ---
DATE OF SERVICE: 05/02/2021 REFERRING PHYSICIAN: Keenan Isaac MD REASON FOR CONSULTATION: Rectal bleeding. HISTORY OF PRESENT ILLNESS: The patient is a pleasant 81-year-old woman, who was admitted to the hospital after presenting to the emergency room with complaints of rectal bleeding, which began the day of admission. She reports she was well until the day of admission when she had passage of bright red blood per rectum without associated fevers or chills. There was some mild abdominal cramping, and no nausea or vomiting. She was concerned about the amount of blood and presented to the emergency department, where she was evaluated. She does have a family history of colon cancer in a brother and sister. Rectal examination in the emergency department showed bright red blood with stool in the rectum and blood clots as well. Laboratory studies were done showing a hematocrit on admission of 37, which dropped to 34.[address] scanning of the abdomen and pelvis was obtained which is reviewed. This is interpreted as showing diverticulosis. The patient denies any prior history of rectal bleeding. She has been evaluated in the past with colonoscopy last in February of 2007, which did show diverticulosis and internal hemorrhoids. PAST MEDICAL HISTORY: 1. COPD. 2. Sleep apnea. 3. Osteoarthritis. 4. IgG gammopathy. 5. Vitamin D deficiency. 6. Goiter. 7. Overactive bladder. CURRENT MEDICATIONS: Her current medication list is reviewed in the chart. She does not take blood thinners and rarely takes NSAIDs. ALLERGIES: SERTRALINE. FAMILY HISTORY: This is reviewed with the patient and is positive for colon cancer as above. SOCIAL HISTORY: She does not smoke and does not use significant amounts of alcohol. REVIEW OF SYSTEMS: SKIN: No pruritus. HEENT: Negative. CARDIOPULMONARY: No shortness of breath or chest pain. GASTROINTESTINAL: As above. GENITOURINARY: Negative. NEUROPSYCHIATRIC: Negative. PHYSICAL EXAMINATION: GENERAL: Shows a pleasant female, who was hard of hearing. VITAL SIGNS: Reviewed in the electronic medical record and are stable. SKIN: Anicteric. HEENT: Shows no scleral icterus. NECK: Without lymphadenopathy or thyromegaly. LUNGS: Clear. HEART: Shows regular rate and rhythm. S1, S2. No murmur. ABDOMEN: Soft without focal masses or tenderness. Bowel sounds are present. No organomegaly is noted. EXTREMITIES: Without edema. LABORATORY DATA: Reviewed as is her CAT scan. IMPRESSION: Rectal bleeding. This appears consistent with a probable diverticular bleed based on her presentation. I did recommend further evaluation with colonoscopy because of her family history. We discussed risks and benefits of the procedure today. She understands and agrees to proceed. This will be scheduled for tomorrow. Thanks for asking me to see her. I will follow her in the hospital with you. MD TIERA Travis/ROLAN / [phone]
[2021-05-03 06:45] LABS: Hematocrit 33.4 % (37-47); Mean Corpuscular HGB Conc 32.9 g/dl (31.0-35.0); Mean Corpuscular Hemoglobin 29.7 pg (27.0-33.0); Mean Corpuscular Volume 90.3 fL (80-98); Mean Platelet Volume 9.9 fL (9.4-12.3); Platelet Count 169 X10*3/uL (160-400); Red Cell Distribution Width 12.7 % (11.0-16.0); White Blood Count 6.2 X10*3/uL (4.8-10.8)
[2021-05-03 06:58] LABS: Anion Gap 10 (12-20); Blood Urea Nitrogen 5 mg/dL (9-16); Calcium 8.4 mg/dL (8.4-10.2); Carbon Dioxide 30 mmol/L (22-29); Chloride 107 mmol/L (96-108); Creatinine Clr Calc Pharmacy 59.1; Estimated Glomerular Filt Rate > 60; Glucose Fasting 94 mg/dL (60-99); Potassium 2.9 mmol/L (3.3-5.1); Sodium 144 mmol/L (135-145)
[2021-05-03] MEDS: Potassium Chloride/H20 10 MEQ/100 ML PIGGYBACK 100 MEQ IV ×2 (07:54→09:02)
[2021-05-03] MEDS: Fluticasone/Vilanterol 100/25 BLST.W.DEV 1 PUFF INHALE (08:05)
--- NOTE | 2021-05-03 10:04 | P.CONAN_ITS ---
[facility] Active Problems Active Problems: All Active Problems (Updated 05/02/21 @ 07:53 by Chance Melendrez MD) Bilateral lower extremity edema (Acute) Hypertension (Acute) IgG gammopathy (Chronic) GI bleed (Acute) Goiter (Acute) Vitamin D deficiency (Acute) Overactive bladder (Acute) Osteoporosis (Acute) CINDY (obstructive sleep apnea) (Acute) COPD (chronic obstructive pulmonary disease) (Acute) Past Medical History Medical History Asthma Bilateral lower extremity edema COPD (chronic obstructive pulmonary disease) Goiter Hypertension IgG gammopathy CINDY (obstructive sleep apnea) Trigger finger, left middle finger Trigger finger, left ring finger Vitamin D deficiency Family History Family History Mother Bone cancer Father No problems noted. Sister Colon cancer Bone cancer Breast cancer Brother Colon cancer Surgical History Surgical History History of ear surgery History of eye surgery History of hernia surgery History of Problems with Anesthesia: No Social History Social History Household Members: None Housing: Apartment Do you presently have visiting nurse or other home services: No Alcohol intake: never Patient Tobacco Use Status: Former Tobacco user Tobacco use type: Cigarette Cigarette Packs Per Day: 1 Years Smoked: 7 Use of substances other than those prescribed or required for medical reasons: No Currently Displaying Signs/Symptoms of Drug Intoxication Withdrawal: No Have you been hit, kicked, punched, or otherwise hurt by someone within the past year? If so, by whom?: No Do you feel safe in your current relationship?: No Current Relationship Is there a partner from a previous relationship who is making you feel unsafe now?: No Are you made to feel afraid or neglected: No Are you DNR?: No Advance Directives: No Advance Directives Information Provided: No Do you have thoughts of harming others: None Do you have a plan to hurt others: No Plan Recently lost weight without trying: No Nutrition Risks: No Nutritional Risk Patient : No : No Poor oral hygiene: No service: No Current occupational status: retired Current occupation: right handed Meds Allergies Allergy/AdvReac Type Severity Reaction Status Date / Time sertraline [From ZOLOFT] AdvReac Intermediate AGITATION Verified 04/27/21 10:26 Active Medications: Current Medications Acetaminophen (Acetaminophen 325 Mg Tablet) 650 mg PO Q6H PRN PRN Reason: Pain, Mild (Pain Scale 1-3) Albuterol/Ipratropium (Albuterol/Iprat 2.5/0.5mg 3 Ml Ampul.Neb) 3 ml INHALE Q4H PRN PRN Reason: Shortness of Breath/Wheezing Fluticasone/Vilanterol (Fluticasone/Vilanterol 100/25 Blst.W.Dev) 1 puff INHALE DAILY [facility] Last Admin: 05/03/21 08:05 Dose: 1 puff Documented by: Meclizine HCl (Meclizine Hcl 12.5 Mg Tablet) 12.5 mg PO TID PRN PRN Reason: dizziness Melatonin (Melatonin 3 Mg Tablet) 6 mg PO BEDTIME PRN PRN Reason: Insomnia Mirabegron (Mirabegron 50 Mg Tab.Er.24h) 50 mg PO DAILY [facility] Last Admin: 05/02/21 10:33 Dose: 50 mg Documented by: Senna (Sennosides 8.6 Mg Tablet) 17.2 mg PO BEDTIME PRN PRN Reason: Constipation Sodium Chloride (0.9 % Sodium Chloride Flush 3 Ml Syringe) 3 ml IVFLUSH QSHIFT [facility] Last Admin: 05/03/21 07:54 Dose: 3 ml Documented by: Vitamin D (Cholecalciferol (Vitamin D3) 25 Mcg Tablet) 25 mcg PO DAILY [facility] Last Admin: 05/02/21 10:33 Dose: 25 mcg Documented by: Home Medications Medication Instructions Recorded Confirmed Last Taken Type amlodipine 10 mg tablet 10 mg PO DAILY 08/03/20 05/01/21 Unknown History docusate sodium 100 mg capsule 100 mg PO BID PRN 08/03/20 05/02/21 Unknown History ferrous sulfate 325 mg (65 mg 325 mg PO BID 08/03/20 05/01/21 Unknown History iron) tablet,delayed release furosemide 40 mg tablet 40 mg PO BID 08/03/20 05/01/21 Unknown History lidocaine 5 % topical patch 1 patch TOPICAL DAILY 08/03/20 05/02/21 Unknown History meclizine 12.5 mg tablet 12.5 mg PO TID PRN 08/03/20 05/02/21 Unknown History potassium chloride 10 mEq 10 meq PO BID 04/27/21 05/01/21 Unknown History tablet,extended release tiotropium bromide 18 mcg capsule 1 cap PO DAILY 04/27/21 05/02/21 Unknown History with inhalation device (Spiriva with HandiHaler) zafirlukast 20 mg tablet 20 mg PO BID 04/27/21 05/01/21 Unknown History Exam Exam Date and Time: May 03, 2021 1004 Height,Weight and Vital Signs: Height 4 ft 9 in Weight 73.5 kg Last Vital Signs Temp 97.7 F 05/03/21 09:44 Pulse 88 05/03/21 09:44 Resp 16 05/03/21 09:44 BP 168/71 H 05/03/21 09:44 Pulse Ox 93 05/03/21 09:44 Pertinent Lab Results Pertinent Lab Results: Laboratory Tests 05/01/21 05/01/21 05/01/21 21:51 21:55 21:55 WBC 9.0 RBC 4.11 L Hgb 12.3 Hct 37.0 MCV 90.0 MCH 29.9 MCHC 33.2 RDW 12.6 Plt Count 199 MPV 9.7 Immature Gran % (Auto) 0.4 Neut % (Auto) 62.6 Lymph % (Auto) 24.6 [place] % (Auto) 11.1 H Eos % (Auto) 1.1 Baso % (Auto) 0.2 Lymph # (Auto) 2.2 [place] # (Auto) 1.0 Eos # (Auto) 0.1 Baso # (Auto) 0.0 Abs Immat Gran (auto) 0.04 H Absolute Neuts (auto) 5.6 Absolute Nucleated RBC 0.000 Nucleated RBC % (auto) 0.0 Whole Blood PT 13.2 Whole Blood INR 1.1 Sodium 141 Potassium 3.4 Chloride 100 Carbon Dioxide 30 H Anion Gap 14 BUN 13 Creatinine 0.86 Estim Creat Clear Calc 43.1 Estimated GFR > 60 Random Glucose 98 Fasting Glucose Calcium 10.0 D Magnesium Total Bilirubin 0.6 Direct Bilirubin 0.3 AST 21 ALT 13 Alkaline Phosphatase 72 Troponin I High Sens B-Natriuretic Peptide Total Protein 6.9 Albumin 4.0 Lipase 38 Urine Color Urine Appearance Urine pH Ur Specific [place] Urine Protein Urine Glucose (UA) Urine Ketones Urine Blood Urine Nitrite Ur Leukocyte Esterase Urine RBC Urine WBC Ur Squamous Epith Cells Amorphous Sediment Urine Bacteria Urine Mucus Stool Occult Blood COVID-19 (GOGO) COVID-19 Clin Com Blood Type Antibody Screen 05/01/21 05/01/21 05/01/21 21:55 21:55 22:41 WBC RBC Hgb Hct MCV MCH MCHC RDW Plt Count MPV Immature Gran % (Auto) Neut % (Auto) Lymph % (Auto) [place] % (Auto) Eos % (Auto) Baso % (Auto) Lymph # (Auto) [place] # (Auto) Eos # (Auto) Baso # (Auto) Abs Immat Gran (auto) Absolute Neuts (auto) Absolute Nucleated RBC Nucleated RBC % (auto) Whole Blood PT Whole Blood INR Sodium Potassium Chloride Carbon Dioxide Anion Gap BUN Creatinine Estim Creat Clear Calc Estimated GFR Random Glucose Fasting Glucose Calcium Magnesium Total Bilirubin Direct Bilirubin AST ALT Alkaline Phosphatase Troponin I High Sens 5.4 B-Natriuretic Peptide 45 Total Protein Albumin Lipase Urine Color Urine Appearance Urine pH Ur Specific [place] Urine Protein Urine Glucose (UA) Urine Ketones Urine Blood Urine Nitrite Ur Leukocyte Esterase Urine RBC Urine WBC Ur Squamous Epith Cells Amorphous Sediment Urine Bacteria Urine Mucus Stool Occult Blood COVID-19 (GOGO) Negative COVID-19 [employer] Com See Note Blood Type Antibody Screen 05/01/21 05/02/21 05/02/21 22:41 00:14 05:37 WBC 6.4 RBC 3.82 L Hgb 11.3 L Hct 34.6 L MCV 90.6 MCH 29.6 MCHC 32.7 RDW 12.6 Plt Count 179 MPV 9.9 Immature Gran % (Auto) 0.3 Neut % (Auto) 49.4 Lymph % (Auto) 35.9 [place] % (Auto) 12.0 H Eos % (Auto) 2.2 Baso % (Auto) 0.2 Lymph # (Auto) 2.3 [place] # (Auto) 0.8 Eos # (Auto) 0.1 Baso # (Auto) 0.0 Abs Immat Gran (auto) 0.02 Absolute Neuts (auto) 3.2 Absolute Nucleated RBC 0.000 Nucleated RBC % (auto) 0.0 Whole Blood PT Whole Blood INR Sodium Potassium Chloride Carbon Dioxide Anion Gap BUN Creatinine Estim Creat Clear Calc Estimated GFR Random Glucose Fasting Glucose Calcium Magnesium Total Bilirubin Direct Bilirubin AST ALT Alkaline Phosphatase Troponin I High Sens B-Natriuretic Peptide Total Protein Albumin Lipase Urine Color YELLOW Urine Appearance CLEAR Urine pH 7.0 Ur Specific [place] 1.015 Urine Protein NEG Urine Glucose (UA) NEG Urine Ketones NEG Urine Blood 1+ H Urine Nitrite NEG Ur Leukocyte Esterase TRACE H Urine RBC 1-4 Urine WBC 1-4 Ur Squamous Epith Cells 2+ Amorphous Sediment 1+ Urine Bacteria 2+ Urine Mucus 1+ Stool Occult Blood POSITIVE COVID-19 (GOGO) COVID-19 [facility] Blood Type Antibody Screen 05/02/21 05/02/21 05/03/21 05:37 05:37 06:32 WBC 6.2 RBC 3.70 L Hgb 11.0 L Hct 33.4 L MCV 90.3 MCH 29.7 MCHC 32.9 RDW 12.7 Plt Count 169 MPV 9.9 Immature Gran % (Auto) Neut % (Auto) Lymph % (Auto) [place] % (Auto) Eos % (Auto) Baso % (Auto) Lymph # (Auto) [place] # (Auto) Eos # (Auto) Baso # (Auto) Abs Immat Gran (auto) Absolute Neuts (auto) Absolute Nucleated RBC 0.000 Nucleated RBC % (auto) 0.0 Whole Blood PT Whole Blood INR Sodium 143 Potassium 3.0 L Chloride 104 Carbon Dioxide 33 H Anion Gap 9 L BUN 10 Creatinine 0.78 Estim Creat Clear Calc 47.7 Estimated GFR > 60 Random Glucose 94 Fasting Glucose Calcium 8.9 D Magnesium 2.1 Total Bilirubin Direct Bilirubin AST ALT Alkaline Phosphatase Troponin I High Sens B-Natriuretic Peptide Total Protein Albumin Lipase Urine Color Urine Appearance Urine pH Ur Specific [place] Urine Protein Urine Glucose (UA) Urine Ketones Urine Blood Urine Nitrite Ur Leukocyte Esterase Urine RBC Urine WBC Ur Squamous Epith Cells Amorphous Sediment Urine Bacteria Urine Mucus Stool Occult Blood COVID-19 (GOGO) COVID-19 [facility] Blood Type Antibody Screen 05/03/21 05/03/21 06:32 07:45 WBC RBC Hgb Hct MCV MCH MCHC RDW Plt Count MPV Immature Gran % (Auto) Neut % (Auto) Lymph % (Auto) [place] % (Auto) Eos % (Auto) Baso % (Auto) Lymph # (Auto) [place] # (Auto) Eos # (Auto) Baso # (Auto) Abs Immat Gran (auto) Absolute Neuts (auto) Absolute Nucleated RBC Nucleated RBC % (auto) Whole Blood PT Whole Blood INR Sodium 144 Potassium 2.9 L Chloride 107 Carbon Dioxide 30 H Anion Gap 10 L BUN 5 L Creatinine 0.63 Estim Creat Clear Calc 59.1 Estimated GFR > 60 Random Glucose Fasting Glucose 94 Calcium 8.4 Magnesium Total Bilirubin Direct Bilirubin AST ALT Alkaline Phosphatase Troponin I High Sens B-Natriuretic Peptide Total Protein Albumin Lipase Urine Color Urine Appearance Urine pH Ur Specific [place] Urine Protein Urine Glucose (UA) Urine Ketones Urine Blood Urine Nitrite Ur Leukocyte Esterase Urine RBC Urine WBC Ur Squamous Epith Cells Amorphous Sediment Urine Bacteria Urine Mucus Stool Occult Blood COVID-19 (GOGO) COVID-19 Clin Com Blood Type O Positive Antibody Screen NEGATIVE Airway Mallampati Class: III TM Dist: >3cm Neck ROM: Limited Heart: RRR Lungs: CTA Assessment and Plan Assessment Anesthesia Assessment: Anesthesia Plan Discussed and Chart Reviewed Final Anesthetic Review History of Problems with Anesthesia: No NPO: Yes ASA Class: III Final Preanesthetic Review: Meds/Allgs Chart Reviewed, Consent Obtained/Reviewed and Anes Risks/Benef Reviewed Patient Risk: Intermediate Procedure Risk: Low Anesthetic Plan Anesthetic Plan: MAC: Disposition: Standard PACU
--- NOTE | 2021-05-03 10:40 | P.BOP_ITS ---
Brief Operative Note Date of Service: 05/03/21 Pre-op diagnosis: gi bleed Post-op diagnosis: same (diverticulosis) Procedure: colonoscopy Surgeon: Luis Johnson Anesthesia: MAC Was an Revenue Enforcement Collection Agent used for this Procedure?: No Estimated blood loss (mL): 0 Pathology: none sent Condition: stable Disposition: PACU
--- NOTE | 2021-05-03 10:41 | PM.EVENT ---
Event Note Date of Service: 05/03/21 Event Note: GI full note dictated Colonoscopy shows sigmoid diverticulosis without bleeding. Rec: advance diet d/c when stable f/u prn
--- NOTE | 2021-05-03 11:29 | OP_ITS ---
SURGEON: Luis Johnson MD INDICATIONS: Lower GI bleeding. PREOPERATIVE DIAGNOSIS: POSTOPERATIVE DIAGNOSIS: PROCEDURE PERFORMED: Colonoscopy to the terminal ileum. ESTIMATED BLOOD LOSS: COMPLICATIONS: ANESTHESIA: ASSISTANTS: SPECIMENS: MEDICATIONS: Monitored anesthesia care. DESCRIPTION OF PROCEDURE: History and physical performed. The risks and benefits of the procedure were explained to the patient. Informed consent was obtained. The patient was placed in the left lateral decubitus position. A digital rectal exam was performed and was found to be normal. The Olympus pediatric video colonoscope was introduced into the rectum and advanced to the cecum without difficulty. The cecum was identified by transillumination, palpation, and identification of ileocecal valve. Examination was performed and the scope was removed. She tolerated the procedure well and was taken to recovery area in stable condition. FINDINGS: The terminal ileum was normal. The visualized colonic mucosa was normal. The quality of prep was good. In the sigmoid, there was moderate diverticulosis without any bleeding. Retroflexed examination showed moderate-sized internal hemorrhoids. IMPRESSION: Diverticulosis. RECOMMENDATIONS: 1. Follow up as needed. 2. Advanced diet. 3. Discharge when stable. 4. Screening colonoscopy is not recommended based on age. MD TIERA Travis/ROLAN / [id number] [id number]
--- NOTE | 2021-05-03 11:56 | HO.PM.IMPN ---
Subjective Subjective Date of Service: 05/03/21 Interval History: The patient was seen and evaluated this afternoon Laying in bed, feels improvement since admission No reported overnight bleeding episodes Denies any fever, chills or shortness of breath No reported other overnight events. Systemic review: No fever, chills or weakness No chest pain, palpitation No shortness of breath or coughing Had bloody bowel movements No urinary symptoms No any rash or wounds Physical Exam Vital Signs: Vital Signs: Last Vital Signs Temp 97.2 F 05/03/21 11:01 Pulse 84 05/03/21 11:01 Resp 20 05/03/21 11:01 BP 160/74 H 05/03/21 11:01 Pulse Ox 97 05/03/21 11:01 Body Mass Index 35.0 Const: Other: Constitutional : Alert, oriented, not in distress Neck : Normal inspection, Supple Cardiovascular : RRR, S1 S2, no lower extremity edema Respiratory : Good bilateral air entry, no crackles, wheezes or rhonchi Gastrointestinal: soft, lax, Normal bowel sounds, Non tender Skin : Warm, Dry Neurological : Alert & oriented x3, No focal deficit Objective Data Active Medications Acetaminophen (Acetaminophen 325 Mg Tablet) 650 mg PO Q6H PRN PRN Reason: Pain, Mild (Pain Scale 1-3) Albuterol/Ipratropium (Albuterol/Iprat 2.5/0.5mg 3 Ml Ampul.Neb) 3 ml INHALE Q4H PRN PRN Reason: Shortness of Breath/Wheezing Fluticasone/Vilanterol (Fluticasone/Vilanterol 100/25 Blst.W.Dev) 1 puff INHALE DAILY [facility] Last Admin: 05/03/21 08:05 Dose: 1 puff Documented by: GABRIELLA Meclizine HCl (Meclizine Hcl 12.5 Mg Tablet) 12.5 mg PO TID PRN PRN Reason: dizziness Melatonin (Melatonin 3 Mg Tablet) 6 mg PO BEDTIME PRN PRN Reason: Insomnia Mirabegron (Mirabegron 50 Mg Tab.Er.24h) 50 mg PO DAILY [facility] Last Admin: 05/02/21 10:33 Dose: 50 mg Documented by: LORENZO Senna (Sennosides 8.6 Mg Tablet) 17.2 mg PO BEDTIME PRN PRN Reason: Constipation Sodium Chloride (0.9 % Sodium Chloride Flush 3 Ml Syringe) 3 ml IVFLUSH QSHIFT [facility] Last Admin: 05/03/21 07:54 Dose: 3 ml Documented by: LORENZO Vitamin D (Cholecalciferol (Vitamin D3) 25 Mcg Tablet) 25 mcg PO DAILY [facility] Last Admin: 05/02/21 10:33 Dose: 25 mcg Documented by: LORENZO Labs CBC & Chem 7: 05/03/21 06:32 05/03/21 06:32 Labs: Laboratory Results - last 24 hr 05/03/21 05/03/21 05/03/21 06:32 06:32 07:45 MCV 90.3 MCH 29.7 MCHC 32.9 RDW 12.7 Plt Count 169 MPV 9.9 Absolute Nucleated RBC 0.000 Nucleated RBC % (auto) 0.0 Anion Gap 10 L Estim Creat Clear Calc 59.1 Estimated GFR > 60 Fasting Glucose 94 Calcium 8.4 Blood Type O Positive Antibody Screen NEGATIVE Microbiology Microbiology Results: Microbiology 05/01/21 Unknown Urine Culture - Final Urine clean catch - Urine clifford top Assessment and Plan (1) GI bleed: Status: Acute (2) BRBPR (bright red blood per rectum): Status: Acute Assessment and Plan: 81F presented with BRBPR acute blood loss anemia due to GI bleed BRBPR hgb stable around 11 monitor cbc GI input appreciated, to do colonoscopy today Advanced diet as tolerated Hypokalemia Potassium of 2.9 To give replacement Monitor BMP Hx severe copd breo, nebs as needed, stable chronic lower extremity edema holding lasix htn holding amlodipine Quality Stroke Does the patient have a stroke diagnosis?: No VTE Prior VTE?: No VTE Risk Level:: Medical - moderate - high VTE Device Contraindication: N/A - Device Ordered VTE Drug Contraindication: Treatment Not Indicated
[2021-05-03] MEDS: Mirabegron 50 MG TAB.ER.24H PO (12:58)
[2021-05-03] MEDS: Cholecalciferol (Vitamin D3) 25 MCG TABLET PO (12:58)
[2021-05-04 03:22] VITALS: BP 145/65; PULSE 70; RESP 18; TEMP 36.3; O2SAT 91
[2021-05-04 07:03] LABS: Hematocrit 34.7 % (37-47); Hemoglobin 11.4 g/dl (12.0-16.0); Mean Corpuscular HGB Conc 32.9 g/dl (31.0-35.0); Mean Corpuscular Hemoglobin 30.1 pg (27.0-33.0); Mean Corpuscular Volume 91.6 fL (80-98); Mean Platelet Volume 9.9 fL (9.4-12.3); Platelet Count 166 X10*3/uL (160-400); Red Blood Count 3.79 X10*6/uL (4.20-5.50); Red Cell Distribution Width 12.8 % (11.0-16.0); White Blood Count 5.8 X10*3/uL (4.8-10.8)
[2021-05-04 07:27] LABS: Anion Gap 10 (12-20); Blood Urea Nitrogen 7 mg/dL (9-16); Calcium 8.7 mg/dL (8.4-10.2); Carbon Dioxide 26 mmol/L (22-29); Chloride 108 mmol/L (96-108); Creatinine Clr Calc Pharmacy 55.5; Estimated Glomerular Filt Rate > 60; Glucose Random 97 mg/dL (60-115); Potassium 3.1 mmol/L (3.3-5.1); Sodium 141 mmol/L (135-145)
[2021-05-04 08:00] VITALS: BP 162/74; PULSE 76; RESP 20; TEMP 36.7; O2SAT 92
[2021-05-04] MEDS: Cholecalciferol (Vitamin D3) 25 MCG TABLET PO (09:26)
[2021-05-04] MEDS: Mirabegron 50 MG TAB.ER.24H PO (09:26)
[2021-05-04] MEDS: Potassium Chloride Packet 20 MEQ PACKET 40 MEQ PO (09:26)
[2021-05-04] MEDS: 0.9 % Sodium Chloride Flush 3 ML SYRINGE IVFLUSH (09:27)
--- NOTE | 2021-05-04 10:22 | P.DS_ITS ---
DS: Providers Provider Date of Service: 05/04/21 Date of admission: 05/01/21 22:32 Primary care physician: Unknown Physician Consults: 05/01/21 22:34 Consult to Gastroenterology Routine Consulting Provider: Luis Johnson Reason for consultation: BRBPR DS: Diagnosis Discharge Diagnosis (1) GI bleed: Status: Acute (2) BRBPR (bright red blood per rectum): Status: Acute (3) Diverticulosis: Status: Acute DS: Summary Hospital Course Hospital Course: Admission note HPI 81-year-old female with a past medical history of COPD, CINDY, osteoarthritis, IgG gammopathy, vitamin-D deficiency, goiter, overactive bladder presented to the hospital with a chief complaint of bright red blood per rectum.? Patient mentioned that she noticed bright red blood per rectum today; did not have any episodes yesterday.? Mentioned she had few episodes prior to come to the hospital.? Did not have any further episodes after she came to ER. Denies any lightheadedness dizziness.? Denies any falls or syncope. Denies any chest pain palpitations. Denies any abdominal discomfort. Denies being taking any anticoagulants. Per ER team patient's exam was nonfocal; on labs hygiene is stable; vitals stable.? On rectal exam noted to have clots in the rectal wart; did not appreciate hemorrhoids.? Guaiac positive.? Admitted for further management. Hospital course Patient was admitted for rectal bleeding and monitor during the hospital stay as her hemoglobin level remained stable around 11. She was evaluated by Gastroenterology who did colonoscopy that showed diverticulosis but no evidence of ulcers, masses or polyps. Recommendations for follow-up as outpatient per Dr. Johnson. Patient was able to tolerate diet well with no evidence of bleeding for the last 2 days in the hospital stay. To be discharged on fibers. Time Spent with Patient Time attestation: Total time spent providing and/or coordinating discharge services: Discharge coordination time: Greater than 30 minutes Quality: Stroke Does the patient have a stroke diagnosis?: No Physical Exam Vital Signs: Vital Signs: Last Vital Signs Temp 98.1 F 05/04/21 08:00 Pulse 76 05/04/21 08:00 Resp 20 05/04/21 08:00 BP 162/74 H 05/04/21 08:00 Pulse Ox 92 05/04/21 08:00 Body Mass Index 35.0 Const: Other: Constitutional : Alert, oriented, not in distress Neck : Normal inspection, Supple Cardiovascular : RRR, S1 S2, no lower extremity edema Respiratory : Good bilateral air entry, no crackles, wheezes or rhonchi Gastrointestinal: soft, lax, Normal bowel sounds, Non tender Skin : Warm, Dry Neurological : Alert & oriented x3, No focal deficit DS: Data Data Completed and Pending Labs on day of discharge: Laboratory Results - last 24 hr 05/04/21 05/04/21 06:54 06:54 WBC 5.8 RBC 3.79 L Hgb 11.4 L Hct 34.7 L MCV 91.6 MCH 30.1 MCHC 32.9 RDW 12.8 Plt Count 166 MPV 9.9 Absolute Nucleated RBC 0.000 Nucleated RBC % (auto) 0.0 Sodium 141 Potassium 3.1 L Chloride 108 Carbon Dioxide 26 Anion Gap 10 L BUN 7 L Creatinine 0.67 Estim Creat Clear Calc 55.5 Estimated GFR > 60 Random Glucose 97 Calcium 8.7 Discharge Plan Discharge Patient Disposition: Home, Self-Care Discharge Diagnosis: Bleeding per rectum Referrals: Physician,Unknown [Primary Care Provider] - 1 Week Discharge Medications: New psyllium husk 2.6 gram/4.1 gram powder 1 tbsp PO BID Qty: 480 RF: 1 Continued Breo Ellipta 100-25 mcg/dose blister with device 1 inh inhalation DAILY 30 Days Qty: 28 RF: 2 denosumab 60 mg/mL syringe 60 mg subcut [id number] Qty: 1 RF: 1 Myrbetriq 50 mg tablet extended release 24 hr 50 mg PO DAILY 30 Days Qty: 30 RF: 1 lidocaine 5 % adhesive patch,medicated 1 patch topical DAILY RF: 0 ferrous sulfate 325 mg (65 mg iron) tablet,delayed release (DR/EC) 325 mg PO BID RF: 0 meclizine 12.5 mg tablet 12.5 mg PO TID PRN (Reason: dizziness) RF: 0 amlodipine 10 mg tablet 10 mg PO DAILY RF: 0 docusate sodium 100 mg capsule 100 mg PO BID PRN (Reason: Constipation) RF: 0 furosemide 40 mg tablet 40 mg PO BID RF: 0 potassium chloride 10 mEq tablet extended release 10 meq PO BID RF: 0 zafirlukast 20 mg tablet 20 mg PO BID RF: 0 Spiriva with HandiHaler 18 mcg capsule, w/inhalation device 1 cap PO DAILY RF: 0 Discharge Orders: Discharge Order (Routine); Ordered 05/04/21 Ordered By: Blanquita Figueroa Diet: advance to usual diet Activity on Discharge: As tolerated Stand Alone Forms: Patient Portal Discharge page Care Plan Goals: Read below Health Concerns: Read below Plan of Treatment: You were admitted to the hospital for evaluation of rectal bleeding. Evaluated by network support administrator who did colonoscopy showing no ulcers or positives. You were found to have diverticulosis which is the likely source of bleeding. Your blood level remained stable and you were able to tolerate diet with no recurrence of the bleeding. Assessment: Start fiber with goal of avoiding constipation Come back to the hospital for any recurrence of the bleeding to follow-up with Dr. Johnson office as needed after calling for an appointment
[2021-05-04 10:32] VITALS: O2SAT 92
--- NOTE | 2021-05-04 11:29 | MHC.CM.PN ---
IMM 05/04/21 Female 81 DX GIB She is discharged home today. [employer] services thru [facility] will resume. [facility] will resume services. She has arranged for a ride home.
--- NOTE | 2021-05-04 15:07 | HO.POSTANES ---
Post Anesthesia Evaluation Post Anesthesia Evaluation Vital Signs: Vital Signs Temp Pulse Resp BP Pulse Ox 05/04/21 10:32 92 05/04/21 08:00 98.1 F 76 20 162/74 H 92 05/04/21 03:22 97.4 F 70 18 145/65 H 91 L Anesthesia: Monitored Mental Status: Awake Pain Control: Satisfactory Nausea/Vomiting: None Hydration: Adequate Anesthesia-Related Issues: No Anes. Related Issues
== END 2021-05-04 14:07 | disposition home or self-care (01) | DRG 378 ==
LOC: HO.ED 22:36 → HO.IMC 05-02 00:23
PROVIDERS: Internal Medicine; Internal Medicine Gastroenterology; Admitting Provider Hospitalist; Emergency Provider Emergency Medicine; Visit Provider Student in an Organized Health Care Education/Training Program
PROC: 0DJD8ZZ Inspection of Lower Intestinal Tract, Via Natural or Artificial Opening Endoscopic (ICD-10-PCS; CPT 45378; principal; 2021-05-03 10:00)
DX: K57.31 Diverticulosis of large intestine without perforation or abscess with bleeding (principal); D62 Acute posthemorrhagic anemia; J44.9 Chronic obstructive pulmonary disease, unspecified; Z20.822 Contact with and (suspected) exposure to COVID-19; M19.90 Unspecified osteoarthritis, unspecified site; I10 Essential (primary) hypertension; Z87.891 Personal history of nicotine dependence; Z79.899 Other long term (current) drug therapy
CPT/HCPCS: 45378; 36415; 74176; 80048; 80076; 81001; 82272; 83690; 83735; 83880; 84484; 85025; 85027; 85610; 86850; 86900; 86901; 87086; 87635; 93005; 99219; 99285

== ENCOUNTER 2021-06-13 09:28 | Outpatient (REF) | payer MEDICARE, SELFPAY ==
--- NOTE | ~2021-06-13 | US_ITS ---
EXAMINATION: US THYROID CLINICAL INFORMATION: Nontoxic multinodular goiter. Assess for parathyroid adenoma. COMPARISON: None TECHNIQUE: Linear transducer clifford-scale and color Doppler examination with attention to the region of the thyroid. FINDINGS: SIZE: Measurements of the thyroid lobes and nodules are given in sagittal, anteroposterior and transverse dimensions respectively. Right Thyroid Lobe: 5.0 x 2.3 x 1.0 cm, volume 6.0 mL. Parenchyma: The gland echotexture is homogeneous. Thyroid vascularity is normal. Left Thyroid Lobe: 1.8 x 1.7 x 1.8 cm, volume 7.4 mL. Parenchyma: The gland echotexture is homogeneous. Thyroid vascularity is normal. Isthmus: 0.5 cm in maximum AP dimension. No focal thyroid nodule is seen. NODES: No lymphadenopathy is seen in the tissue surrounding the thyroid gland. No parathyroid adenoma is identified by ultrasound. US/US thyroid IMPRESSION: Normal thyroid ultrasound.
== END 2021-06-13 09:29 | disposition home or self-care (01) ==
LOC: HO.US 09:28
PROVIDERS: Visit Provider Internal Medicine
DX: E04.9 Nontoxic goiter, unspecified (principal)
CPT/HCPCS: 76536

== ENCOUNTER → 2021-06-27 10:54 | Outpatient (BNVA) | payer MEDICARE, SELFPAY | DX: N32.81 Overactive bladder (principal) | CPT/HCPCS: 51798; 99212 ==

== ENCOUNTER 2021-06-28 10:16 | Outpatient (REF) | payer MEDICARE, SELFPAY ==
--- NOTE | ~2021-06-28 | MM_ITS ---
EXAMINATION: BONE DENSITOMETRY CLINICAL INDICATION: Hyperparathyroidism, unspecified. COMPARISON: Bone densitometry 03/22/2021, 02/21/2019 TECHNIQUE: Using a [employer] DXA System (software version: 13.1) manufactured by [employer], dual-energy x-ray absorptiometry was performed of the left forearm radius 33%. The images are of good technical quality. Summary results are attached. FINDINGS: LEFT FOREARM RADIUS 33%: BMD 0.720 g/cm2, Z-score 1.0, T-score -1.8, osteopenia, 5.9% increase from baseline (<5% change is not significant). Baseline: BMD 0.680 g/cm2. IDENTIFIED RISK FACTORS: Hyperparathyroidism, history of fracture (adult), height loss, menopause. HISTORY OF FRACTURE: Wrist. Ribs. MEDICATIONS: Calcium or multivitamin, Prolia. MM/XR DEXA appendicular skeleton IMPRESSION: 1. DIAGNOSIS: Osteopenia based on the lowest T-score value of -1.8 in the forearm radius 33% applying World Health Organization criteria. 2. 10-YEAR FRACTURE RISK PREDICTION, FRAX: Not performed in absence of hip measurement. See recent prior bone densitometry of 03/22/2021 for additional information regarding FRAX and density in the spine and hips. 3. Treatment Recommendations: NOF guidelines recommend consideration for treatment in postmenopausal women and men age 50 and older presenting with the following: -A hip or vertebral (clinical or morphometric) fracture. -T-score less than or equal to -2.5 at the femoral neck or spine after appropriate evaluation to exclude secondary causes. -Low bone mass at the hip or spine and a 10-year fracture probability by FRAX of greater than or equal to 3% for hip fracture or greater than or equal to 20% for major osteoporotic fracture based on the [place] adapted WHO algorithm. 4. Other Recommendations: All treatment decisions require clinical judgment and consideration of individual patient factors, including patient preferences, comorbidities, previous drug use, risk factors not captured in the FRAX model (e.g. frailty, falls, vitamin D deficiency, increased bone turnover, interval significant decline in bone density) and possible under or overestimation of fracture risk by FRAX. Additional medical evaluation for secondary cause of low bone mineral density may be appropriate. FUTURE SCAN RECOMMENDATION: People with diagnosed cases of osteoporosis or at high risk for fracture should have regular bone mineral density tests. For patients eligible for Medicare, routine testing is allowed once every 2 years. The testing frequency can be increased to one year for patients who have rapidly progressing disease, those who are receiving or discontinuing medical therapy to restore bone mass, or have additional risk factors.
== END 2021-06-28 10:17 | disposition home or self-care (01) ==
LOC: HO.MAMMO 10:16
PROVIDERS: PCP General Practice; Visit Provider Internal Medicine
DX: Z13.820 Encounter for screening for osteoporosis (principal); E21.3 Hyperparathyroidism, unspecified; M85.80 Other specified disorders of bone density and structure, unspecified site; Z78.0 Asymptomatic menopausal state; Z79.899 Other long term (current) drug therapy
CPT/HCPCS: 77081

== ENCOUNTER → 2021-06-30 08:21 | Outpatient (BNVA) | payer MEDICARE, SELFPAY | PROVIDERS: PCP General Practice; Visit Provider Internal Medicine | CPT/HCPCS: Q3014 ==

== ENCOUNTER → 2021-07-01 09:55 | Outpatient (BNVA) | payer MEDICARE, SELFPAY | PROVIDERS: PCP General Practice; Visit Provider Nurse Practitioner Gerontology | DX: M81.0 Age-related osteoporosis without current pathological fracture (principal) | CPT/HCPCS: 96372 ==

== ENCOUNTER → 2021-08-17 13:14 | Outpatient (BNVA) | payer MEDICARE, SELFPAY | PROVIDERS: PCP General Practice; Visit Provider Internal Medicine | DX: G47.33 Obstructive sleep apnea (adult) (pediatric) (principal); J44.9 Chronic obstructive pulmonary disease, unspecified | CPT/HCPCS: 99212 ==

== ENCOUNTER 2021-08-19 10:20 | Outpatient (RCR) | payer MEDICARE, SELFPAY ==
[2020-08-18 13:32] VITALS: BP 146/67; PULSE 82; RESP 12; TEMP 37.1; O2SAT 93; BMI 35.9
--- NOTE | 2020-08-18 13:44 | PM.HEMONCPN ---
Medical Summary - Medical Summary Date of Service: 08/18/20 Chief complaint: Follow-up Medical Summary: Diagnosis: IgG lambda monoclonal gammopathy Patient diagnosed with osteoporosis, compression fracture of T10 vertebra requiring kyphoplasty. Serum protein electrophoresis in January 2017 showed M spike in the gammaglobulin region, normal total protein and albumin level. Normal kidney functions, no anemia or hypercalcemia. Hematology consultation March 21, 2017, normal CBC, reticulocyte count 0.7, normal kidney and liver functions, total protein 7.5, albumin 3.6, LDH 197, beta-2 microglobulin slightly elevated at 2.92, serum protein electrophoresis showed an IgG lambda monoclonal band, normal immunoglobulin levels, elevated free kappa light chain 41.4, normal free lambda light chain of 16.5, elevated ratio of 2.51. Elevated vitamin B12, slightly decreased iron levels with iron saturation of 11% and ferritin of 19. Interval History Interval history: Patient is here in follow-up. She is accompanied by her daughter today. She is doing very well and has no complaints today. She denies any fever, chills, fatigue, exertional chest pain or shortness of breath. She has been receiving Prolia every 6 months. She is not on any new medications. She denies any recent infections. Review of Systems - Constitutional Reports no additional constitutional complaints - Cardiovascular Reports no additional cardiovascular complaints - Respiratory Reports no additional respiratory complaints - Gastrointestinal Reports no additional gastrointestinal complaints [facility]LY [facility] Medical History: Medical History (Last Updated 08/03/20 @ 10:19 by BILLY Capps) Asthma COPD (chronic obstructive pulmonary disease) Hypertension Family History: Family History (Last Updated 08/03/20 @ 10:21 by BILLY Capps) Mother Bone cancer Father No problems noted. Sister Bone cancer Surgical History: Surgical History (Last Updated 08/03/20 @ 10:15 by BILLY Capps) History of ear surgery History of eye surgery History of hernia surgery Oncology Screenings - ECOG Performance Status ECOG Performance Status: 1 Home Medications and Allergies Home Medications Medication Instructions Recorded Confirmed Type albuterol sulfate 0.8333 mg PO TID 08/03/20 08/18/20 History amlodipine 10 mg tablet 10 mg PO DAILY 08/03/20 08/18/20 History calcium carbonate 600 mg (1,500 1 tab PO BID 08/03/20 08/18/20 History mg)-vitamin D3 200 unit tablet cholecalciferol (vitamin D3) 25 25 mcg PO DAILY 08/03/20 08/18/20 History mcg (1,000 unit) capsule denosumab 60 mg/mL subcutaneous 60 mg SUBCUT QMONTH 08/03/20 08/18/20 History syringe docusate sodium 100 mg capsule 100 mg PO BID 08/03/20 08/18/20 History ferrous sulfate 325 mg (65 mg 325 mg PO BID 08/03/20 08/18/20 History iron) tablet,delayed release furosemide 40 mg tablet 40 mg PO BID 08/03/20 08/18/20 History lidocaine 5 % topical patch 1 patch TOPICAL DAILY 08/03/20 08/18/20 History meclizine 12.5 mg tablet 12.5 mg PO BID-TID PRN 08/03/20 08/18/20 History potassium chloride 10 mEq 10 meq PO BID 08/03/20 08/18/20 History tablet,extended release(part/cryst) Allergies Allergy/AdvReac Type Severity Reaction Status Date / Time sertraline [From ZOLOFT] AdvReac Intermediate AGITATION Verified 08/03/20 10:13 zoloft Allergy Unknown Unknown Uncoded 08/03/20 10:13 Exam Vital signs: Vital Signs Temp 98.7 F 08/18/20 13:32 Pulse 82 08/18/20 13:32 Resp 12 08/18/20 13:32 BP 146/67 H 08/18/20 13:32 Pulse Ox 93 08/18/20 13:32 Intake & Output 08/17/20 08/18/20 08/18/20 18:59 06:59 18:59 Other: Weight 75.3 kg Weight 75.3 kg Body Mass Index 35.9 - Constitutional Present: no acute distress - Routine HEENT Exam Head: Present: normal inspection Eye: Present: EOMI - Routine Neck Exam Absent: lymphadenopathy - Routine Respiratory Exam Present: CTAB - Routine Cardiovascular Exam Cardiovascular: Present: S1, S2 - Routine Abdominal Exam Present: normal bowel sounds, soft - Routine Extremities Exam Present: normal inspection. Absent: calf tenderness Data - Labs CBC & Chem 7: 08/18/20 13:59 08/18/20 13:59 Progress Note: A/P (1) IgG gammopathy Status: Chronic Assessment and plan: 1. This is a 79-year-old female with severe osteoporosis, IgG lambda monoclonal protein, normal immunoglobulin levels, normal albumin and total protein. She has slight elevation in free kappa light chain with a mildly elevated kappa/lambda ratio of 2.51. Mildly elevated beta-2 microglobulin level. Skeletal survey performed 04/24/17 showed new compression deformity of T9 vertebra. Core biopsy of the T10 vertebral body showed inflammation, no evidence of malignancy. She is now on prolia every 6 months for osteoporosis. She is doing well, she is being managed conservatively. Repeat blood work from today is pending. Follow-up in 6 months. - Time Spent With Patient Total time spent is greater than 50% in coordination of care (as documented) at patient's floor/unit and/or counseling patient: 15 - 24 minutes
--- NOTE | 2020-08-18 13:57 | MHC.HEMONCMA ---
Patient came in for a follow up anemia, states she is doing well. No complaints. Medication list updated. Patient will come back for a follow up.
[2020-08-18 14:16] LABS: Hematocrit 38.8 % (37-47); Hemoglobin 12.6 g/dl (12.0-16.0); Mean Corpuscular HGB Conc 32.5 g/dl (31.0-35.0); Mean Corpuscular Hemoglobin 29.9 pg (27.0-33.0); Mean Corpuscular Volume 92.2 fL (80-98); Mean Platelet Volume 10.2 fL (9.4-12.3); Platelet Count 234 X10*3/uL (160-400); Red Blood Count 4.21 X10*6/uL (4.20-5.50); White Blood Count 5.7 X10*3/uL (4.8-10.8)
[2020-08-18 14:51] LABS: Alanine Aminotransferase 15 U/L (0-31); Albumin Level 4.2 g/dL (3.5-5.0); Alkaline Phosphatase 60 U/L (39-117); Anion Gap 11 (12-20); Aspartate Amino Transferase 21 U/L (5-31); Bilirubin Total 0.5 mg/dL (0.0-1.0); Blood Urea Nitrogen 14 mg/dL (9-16); Calcium 9.1 mg/dL (8.4-10.2); Carbon Dioxide 33 mmol/L (22-29); Chloride 102 mmol/L (96-108); Creatinine Clr Calc Pharmacy 46.8; Estimated Glomerular Filt Rate > 60; Glucose Random 97 mg/dL (60-115); Potassium 4.2 mmol/l (3.3-5.1); Sodium 142 mmol/L (135-145); Total Protein 7.2 g/dL (6.5-8.0)
[2020-08-19 18:03] LABS: Beta-2 Microglobulin, Serum 2.73 mg/L (< OR = 2.51); IgA 333 mg/dL (70-320); IgG 1316 mg/dL (600-1540); IgM 57 mg/dL (50-300)
[2020-08-21 14:37] LABS: Kappa, Serum 279 mg/dL (176-443); Kappa/Lambda Ratio, Serum 1.57 (1.29-2.55); Lambda, Serum 178 mg/dL (91-240)
[2021-02-16 15:57] VITALS: BP 186/80; PULSE 87; RESP 18; TEMP 36.8; O2SAT 91
[2021-02-16 15:58] VITALS: BMI 35.7
[2021-02-16 16:00] LABS: Hematocrit 38.6 % (37-47); Hemoglobin 12.6 g/dl (12.0-16.0); Mean Corpuscular HGB Conc 32.6 g/dl (31.0-35.0); Mean Corpuscular Hemoglobin 29.6 pg (27.0-33.0); Mean Corpuscular Volume 90.8 fL (80-98); Mean Platelet Volume 9.9 fL (9.4-12.3); Platelet Count 214 X10*3/uL (160-400); Red Blood Count 4.25 X10*6/uL (4.20-5.50); White Blood Count 6.3 X10*3/uL (4.8-10.8)
--- NOTE | 2021-02-16 16:09 | P.PNHO_ITS ---
Medical Summary - Medical Summary Date of Service: 02/16/21 Chief complaint: follow-up Medical Summary: Diagnosis: IgG lambda monoclonal gammopathy Patient diagnosed with osteoporosis, compression fracture of T10 vertebra requiring kyphoplasty. Serum protein electrophoresis in January 2017 showed M spike in the gammaglobulin region, normal total protein and albumin level. Normal kidney functions, no anemia or hypercalcemia. Hematology consultation March 21, 2017, normal CBC, reticulocyte count 0.7, normal kidney and liver functions, total protein 7.5, albumin 3.6, LDH 197, beta-2 microglobulin slightly elevated at 2.92, serum protein electrophoresis showed an IgG lambda monoclonal band, normal immunoglobulin levels, elevated free kappa light chain 41.4, normal free lambda light chain of 16.5, elevated ratio of 2.51. Elevated vitamin B12, slightly decreased iron levels with iron saturation of 11% and ferritin of 19. Interval History Interval history: patient is here in follow-up, she has no complaints today. A few days ago she experienced right ribcage/ flank pain but it seems to have resolved on its own. She denies loss of appetite, fatigue or weight loss. No change in bowel habits. No cough or shortness of breath. She has received both doses of COVID-19 vaccination. Review of Systems - Constitutional Reports as per HPI, Reports no additional constitutional complaints PMFSH Medical History: Medical History (Last Reviewed 02/16/21 @ 16:02 by Pat Ann RN) Asthma COPD (chronic obstructive pulmonary disease) Hypertension CINDY (obstructive sleep apnea) Family History: Family History (Last Updated 02/16/21 @ 16:05 by Pat Ann RN) Mother Bone cancer Father No problems noted. Sister Colon cancer Bone cancer Breast cancer Brother Colon cancer Surgical History: Surgical History (Last Reviewed 02/16/21 @ 16:03 by Pat Ann RN) History of ear surgery History of eye surgery History of hernia surgery Social History: Social History (Last Reviewed 02/16/21 @ 16:06 by Pat Ann RN) Alcohol History: Alcohol intake: never Occupation Assessmet: Current occupational status: retired Current occupation: right handed Oncology Screenings - ECOG Performance Status ECOG Performance Status: 1 Home Medications and Allergies Home Medications Medication Instructions Recorded Confirmed Type albuterol sulfate 0.8333 mg PO PRN 08/03/20 10/27/20 History amlodipine 10 mg tablet 10 mg PO DAILY 08/03/20 10/27/20 History calcium carbonate 600 mg (1,500 1 tab PO BID 08/03/20 10/27/20 History mg)-vitamin D3 200 unit tablet cholecalciferol (vitamin D3) 25 25 mcg PO DAILY 08/03/20 10/27/20 History mcg (1,000 unit) capsule denosumab 60 mg/mL subcutaneous 60 mg SUBCUT [id number] ml 08/03/20 10/27/20 History syringe docusate sodium 100 mg capsule 100 mg PO BID 08/03/20 10/27/20 History ferrous sulfate 325 mg (65 mg 325 mg PO BID 08/03/20 10/27/20 History iron) tablet,delayed release furosemide 40 mg tablet 40 mg PO BID 08/03/20 10/27/20 History lidocaine 5 % topical patch 1 patch TOPICAL DAILY 08/03/20 10/27/20 History meclizine 12.5 mg tablet 12.5 mg PO BID-TID PRN 08/03/20 10/27/20 History potassium chloride 10 mEq 10 meq PO BID 08/03/20 10/27/20 History tablet,extended release(part/cryst) Allergies Allergy/AdvReac Type Severity Reaction Status Date / Time sertraline [From ZOLOFT] AdvReac Intermediate AGITATION Verified 02/04/21 15:29 Exam Vital signs: Vital Signs Temp 98.3 F 02/16/21 15:57 Pulse 87 02/16/21 15:57 Resp 18 02/16/21 15:57 BP 186/80 H 02/16/21 15:57 Pulse Ox 91 L 02/16/21 15:57 Intake & Output 02/15/21 02/16/21 02/16/21 18:59 06:59 18:59 Other: Weight 75 kg Weight in Grams [id number] Weight 75 kg Body Mass Index 35.7 - Constitutional Present: no acute distress - Routine HEENT Exam Head: Present: normal inspection - Routine Neck Exam Absent: lymphadenopathy - Routine Respiratory Exam Present: CTAB - Routine Cardiovascular Exam Cardiovascular: Present: S1, S2 - Routine Abdominal Exam Present: normal bowel sounds, soft - Routine Extremities Exam Present: normal inspection. Absent: calf tenderness Data - Labs CBC & Chem 7: 02/16/21 15:47 08/18/20 13:59 Labs: 08/18/20 13:59 Beta-2 Microglobulin, Serum Routine Complete Blood Count no Diff Routine Comprehensive Met. Panel Routine Immunofixation Pnl, Serum Routine [place]/Lambda Light Chain Serum Routine 02/16/21 15:47 Complete Blood Count no Diff Routine Laboratory Last Values WBC 6.3 X10*3/uL (4.8-10.8) 02/16/21 15:47 RBC 4.25 X10*6/uL (4.20-5.50) 02/16/21 15:47 Hgb 12.6 g/dl (12.0-16.0) 02/16/21 15:47 Hct 38.6 % (37-47) 02/16/21 15:47 MCV 90.8 fL (80-98) 02/16/21 15:47 MCH 29.6 pg (27.0-33.0) 02/16/21 15:47 MCHC 32.6 g/dl (31.0-35.0) 02/16/21 15:47 RDW 13.0 % (11.0-16.0) 02/16/21 15:47 Plt Count 214 X10*3/uL (160-400) 02/16/21 15:47 MPV 9.9 fL (9.4-12.3) 02/16/21 15:47 Absolute Nucleated RBC 0.000 X10*3/uL (0.0-0.012) 02/16/21 15:47 Nucleated RBC % (auto) 0.0 /100WBC (0.0-0.2) 02/16/21 15:47 Sodium 142 mmol/L (135-145) 08/18/20 13:59 Potassium 4.2 mmol/l (3.3-5.1) 08/18/20 13:59 Chloride 102 mmol/L (96-108) 08/18/20 13:59 Carbon Dioxide 33 mmol/L (22-29) H 08/18/20 13:59 Anion Gap 11 (12-20) L 08/18/20 13:59 BUN 14 mg/dL (9-16) 08/18/20 13:59 Creatinine 0.82 mg/dL (0.5-1.4) 08/18/20 13:59 Estim Creat Clear Calc 46.8 08/18/20 13:59 Estimated GFR > 60 08/18/20 13:59 Random Glucose 97 mg/dL (60-115) 08/18/20 13:59 Calcium 9.1 mg/dL (8.4-10.2) 08/18/20 13:59 Total Bilirubin 0.5 mg/dL (0.0-1.0) 08/18/20 13:59 AST 21 U/L (5-31) 08/18/20 13:59 ALT 15 U/L (0-31) 08/18/20 13:59 Alkaline Phosphatase 60 U/L (39-117) 08/18/20 13:59 Total Protein 7.2 g/dL (6.5-8.0) 08/18/20 13:59 Albumin 4.2 g/dL (3.5-5.0) 08/18/20 13:59 [id number] 2.73 mg/L (< OR = 2.51) H 08/18/20 13:59 IgG Total 1316 mg/dL (600-1540) 08/18/20 13:59 IgA Total 333 mg/dL (70-320) H 08/18/20 13:59 IgM 57 mg/dL (50-300) 08/18/20 13:59 [place]/Lambda Ratio 1.57 (1.29-2.55) 08/18/20 13:59 WALLACE Interpretation SEE NOTE 08/18/20 13:59 [place] Light Chain Anal 279 mg/dL (176-443) 08/18/20 13:59 Lambda Light Chain Anal 178 mg/dL (91-240) 08/18/20 13:59 Progress Note: A/P (1) IgG gammopathy Status: Chronic Assessment and plan: 1. This is a 81-year-old female with severe osteoporosis, IgG lambda monoclonal protein, normal IgG level, normal albumin and total protein. She has slight e levation in free kappa light chain with a mildly elevated kappa/lambda ratio of 2.51. Mildly elevated beta-2 microglobulin level. Skeletal survey performed 04/24/17 showed new compression deformity of T9 vertebra. Core biopsy of the T10 vertebral body showed inflammation, no evidence of malignancy. She is now on prolia every 6 months for osteoporosis. She is doing well, and is being managed conservatively. Follow-up in 6 months. - Time Spent With Patient 15 - 24 minutes
--- NOTE | 2021-02-16 16:21 | MHC.HEMONC ---
Exam with Dr Mcnair. Labs obtained. Medications/Clinical Summary updated by RN. Kay denied pain and reported that she is receiving her Prolia injections at her Endocrinologists office. Follow up in 6 months. Recheck of BP at end of visit 177/75.
[2021-02-16 16:24] VITALS: BP 177/75
[2021-02-16 16:28] LABS: Alanine Aminotransferase 14 U/L (0-31); Albumin Level 4.1 g/dL (3.5-5.0); Alkaline Phosphatase 61 U/L (39-117); Anion Gap 11 (12-20); Aspartate Amino Transferase 19 U/L (5-31); Bilirubin Total 0.4 mg/dL (0.0-1.0); Blood Urea Nitrogen 12 mg/dL (9-16); Carbon Dioxide 33 mmol/L (22-29); Chloride 102 mmol/L (96-108); Creatinine Clr Calc Pharmacy 42.8; Estimated Glomerular Filt Rate > 60; Glucose Random 90 mg/dL (60-115); Potassium 4.2 mmol/L (3.3-5.1); Sodium 142 mmol/L (135-145); Total Protein 7.3 g/dL (6.5-8.0)
[2021-02-16 16:33] LABS: Calcium 10.8 mg/dL (8.4-10.2)
[2021-02-18 14:27] LABS: IgA 357 mg/dL (70-320); IgG 1351 mg/dL (600-1540); IgM 59 mg/dL (50-300)
[2021-02-21 18:06] LABS: Beta-2 Microglobulin, Serum 2.91 mg/L (< OR = 2.51)
[2021-08-19 10:10] LABS: MANUAL DIFF FLAG NO
--- NOTE | 2021-08-19 10:11 | PM.HEMONCPN ---
Medical Summary - Medical Summary Date of Service: 08/19/21 Chief complaint: follow-up Medical Summary: Diagnosis: IgG lambda monoclonal gammopathy Patient diagnosed with osteoporosis, compression fracture of T10 vertebra requiring kyphoplasty. Serum protein electrophoresis in January 2017 showed M spike in the gammaglobulin region, normal total protein and albumin level. Normal kidney functions, no anemia or hypercalcemia. Hematology consultation March 21, 2017, normal CBC, reticulocyte count 0.7, normal kidney and liver functions, total protein 7.5, albumin 3.6, LDH 197, beta-2 microglobulin slightly elevated at 2.92, serum protein electrophoresis showed an IgG lambda monoclonal band, normal immunoglobulin levels, elevated free kappa light chain 41.4, normal free lambda light chain of 16.5, elevated ratio of 2.51. Elevated vitamin B12, slightly decreased iron levels with iron saturation of 11% and ferritin of 19. Interval History Interval history: Patient is here in follow-up, she has no complaints today. She denies loss of appetite, fatigue or weight loss. No change in bowel habits. No cough or shortness of breath. She denies any interim medical issues. [facility] Medical History: Medical History (Last Updated 08/17/21 @ 13:50 by Maya Yee MD) Asthma Bilateral lower extremity edema COPD (chronic obstructive pulmonary disease) COPD (chronic obstructive pulmonary disease) Goiter Hyperparathyroidism Hypertension IgG gammopathy CINDY (obstructive sleep apnea) Trigger finger, left middle finger Trigger finger, left ring finger Vitamin D deficiency Family History: Family History (Last Reviewed 08/17/21 @ 13:46 by Maya Yee MD) Mother Bone cancer Father No problems noted. Sister Colon cancer Bone cancer Breast cancer Brother Colon cancer Surgical History: Surgical History (Last Reviewed 08/17/21 @ 13:46 by Maya Yee MD) History of ear surgery History of eye surgery History of hernia surgery Social History: Social History (Last Reviewed 08/17/21 @ 13:46 by Maya Yee MD) Living Situation History: Household Members: None Housing: Apartment Do you presently have visiting nurse or other home services: No Tobacco History: Patient Tobacco Use Status: Former Tobacco user Tobacco use type: Cigarette Cigarette Packs Per Day: 1 Years Smoked: 7 Occupation Assessmet: service: No Current occupational status: retired Current occupation: right handed Home Medications and Allergies Home Medications Medication Instructions Recorded Confirmed Type amlodipine 10 mg tablet 10 mg PO DAILY 08/03/20 08/19/21 History docusate sodium 100 mg capsule 100 mg PO BID PRN 08/03/20 08/19/21 History ferrous sulfate 325 mg (65 mg 325 mg PO BID 08/03/20 08/19/21 History iron) tablet,delayed release furosemide 40 mg tablet 40 mg PO BID 08/03/20 08/19/21 History lidocaine 5 % topical patch 1 patch TOPICAL DAILY 08/03/20 08/19/21 History meclizine 12.5 mg tablet 12.5 mg PO TID PRN 08/03/20 08/19/21 History potassium chloride 10 mEq 10 meq PO BID 04/27/21 08/19/21 History tablet,extended release tiotropium bromide 18 mcg capsule 1 cap PO DAILY 04/27/21 08/19/21 History with inhalation device (Spiriva with HandiHaler) zafirlukast 20 mg tablet 20 mg PO BID 04/27/21 08/19/21 History albuterol sulfate 2.5 mg INHALATION Q8H PRN ml 08/17/21 08/19/21 History Allergies Allergy/AdvReac Type Severity Reaction Status Date / Time sertraline [From ZOLOFT] AdvReac Intermediate AGITATION Verified 08/17/21 13:29 Exam Vital signs: Vital Signs Temp 98.3 F 02/16/21 15:57 Pulse 87 02/16/21 15:57 Resp 18 02/16/21 15:57 BP 177/75 H 02/16/21 16:24 Pulse Ox 91 L 02/16/21 15:57 Weight 75 kg BMI result Body Mass Index 35.7 - Constitutional Present: no acute distress - Routine HEENT Exam Head: Present: normal inspection - Routine Neck Exam Absent: lymphadenopathy - Routine Respiratory Exam Present: CTAB - Routine Cardiovascular Exam Cardiovascular: Present: S1, S2 - Routine Abdominal Exam Present: normal bowel sounds, soft - Routine Extremities Exam Present: normal inspection. Absent: calf tenderness Data - Labs CBC & Chem 7: 08/19/21 10:06 08/19/21 10:06 Assessment and Plan Patient Active problem list reviewed?: Yes (1) IgG gammopathy Status: Chronic Assessment and plan: 1. This is a 81-year-old female with severe osteoporosis, IgG lambda monoclonal protein, normal IgG level, normal albumin and total protein. She has slight elevation in free kappa light chain with a mildly elevated kappa/lambda ratio of 2.51. Mildly elevated beta-2 microglobulin level. Skeletal survey performed 04/24/17 showed new compression deformity of T9 vertebra. Core biopsy of the T10 vertebral body showed inflammation, no evidence of malignancy. She is now on prolia every 6 months for osteoporosis. She is doing well, CBC today is normal. Immunoglobulin levels are pending. Follow-up in 1 year. - Time Spent With Patient Time Spent with Patient (in minutes): 15 Comment: 15
[2021-08-19 10:15] VITALS: BP 170/80; PULSE 77; RESP 20; TEMP 37.2; O2SAT 95; BMI 34.0
[2021-08-19 10:25] LABS: Basophils Percent Auto 0.2 % (0-2); Eosinophils Absolute Auto 0.2 X10*3/uL (0.0-0.4); Eosinophils Percent Auto 2.6 % (0-4); Hematocrit 39.3 % (37.0-47.0); Hemoglobin 12.8 g/dl (12.0-16.0); Imm Gran Abs Auto 0.01 X10*3/uL (0.00-0.03); Imm Gran Pct Auto 0.2 % (0.0-0.4); Lymphocytes Absolute Auto 1.8 X10*3/uL (1.2-4.9); Mean Corpuscular HGB Conc 32.6 g/dl (31.0-35.0); Mean Corpuscular Hemoglobin 29.8 pg (27.0-33.0); Mean Corpuscular Volume 91.4 fL (80.0-98.0); Monocytes Absolute Auto 0.7 X10*3/uL (0.1-1.2); Monocytes Percent Auto 12.3 % (2-11); Neutrophils Absolute Auto 3.1 x10*3/uL (2.0-8.3); Neutrophils Percent Auto 53.7 % (45-73); Platelet Count 206 X10*3/uL (160-400); Red Cell Distribution Width 13.1 % (11.0-16.0); White Blood Count 5.8 X10*3/uL (4.8-10.8)
[2021-08-19 10:37] LABS: Alanine Aminotransferase 12 U/L (0-31); Albumin Level 3.9 g/dL (3.5-5.0); Alkaline Phosphatase 73 U/L (39-117); Anion Gap 11 (12-20); Aspartate Amino Transferase 17 U/L (5-31); Bilirubin Total 0.6 mg/dL (0.0-1.0); Blood Urea Nitrogen 14 mg/dL (9-16); Calcium 8.9 mg/dL (8.4-10.2); Carbon Dioxide 33 mmol/L (22-29); Chloride 102 mmol/L (96-108); Creatinine Clr Calc Pharmacy 46.8; Estimated Glomerular Filt Rate > 60; Glucose Random 94 mg/dL (60-115); Potassium 3.8 mmol/L (3.3-5.1); Sodium 142 mmol/L (135-145); Total Protein 7.1 g/dL (6.5-8.0)
--- NOTE | 2021-08-19 15:45 | MHC.HEMONC ---
Patient present for follow up with Dr Mcnair. Labs drawn by phlebotomy, vital signs completed and medications reviewed. Patient has had an 8lb weight loss since her last appointment and attributes it to switching from ice cream to popsicles. She is receiving her Denosumab injections every [address] [place] [address] Mcnair in to see the patient.
[2021-08-20 13:26] LABS: IgA 377 mg/dL (70-320); IgG 1351 mg/dL (600-1540); IgM 61 mg/dL (50-300)
== END 2022-04-14 | disposition home or self-care (01) ==
LOC: HO.ONC 10:20
PROVIDERS: PCP Family Medicine; Visit Provider Internal Medicine
DX: D47.2 Monoclonal gammopathy (principal); M81.0 Age-related osteoporosis without current pathological fracture
CPT/HCPCS: 36415; 80053; 82232; 82784; 83883; 85025; 85027; 86334; 99213; 99214

== ENCOUNTER 2021-10-18 14:10 | Outpatient (REF) | payer MEDICARE, SELFPAY ==
--- NOTE | ~2021-10-18 | MM_ITS ---
EXAMINATION: MM SCREENING DIGITAL BREAST TOMOSYNTHESIS, BILATERAL CLINICAL INFORMATION: Screening. Asymptomatic. The lifetime risk of breast cancer based on the Tyrer-Cuzick Model is 3%. COMPARISON: Mammography: 08/19/2020, 05/21/2019, 05/02/2018 TECHNIQUE: Digital breast tomosynthesis is performed in both the craniocaudal and mediolateral oblique views along with computer-aided detection (CAD). Synthesized 2D images are generated from the tomosynthesis. Additional bilateral CC views are provided. FINDINGS: The breasts are almost entirely fatty (ACR BI-RADS breast composition Category a). There are no significant masses, abnormal calcifications, or other abnormalities. Background stromal markings and fibroglandular densities are stable. There is a small dermal lesion overlying the outer right breast again seen. The axilla are unremarkable. MM/MM tomosynthesis screening BI IMPRESSION: No mammographic evidence of malignancy. ASSESSMENT: BI-RADS 1: Negative RECOMMENDATION: Routine annual mammography screening. This patient's information was entered into a reminder system with a target due date for their next mammogram.
== END 2021-10-18 14:11 | disposition home or self-care (01) ==
LOC: HO.MAMMO 14:10
PROVIDERS: Visit Provider General Practice
DX: Z12.31 Encounter for screening mammogram for malignant neoplasm of breast (principal)
CPT/HCPCS: 77063; 77067

== ENCOUNTER 2021-12-13 09:41 | Outpatient (REF) | payer OTHER, SELFPAY ==
[2021-12-13 12:16] LABS: Albumin Level 4.2 g/dL (3.5-5.0); Anion Gap 14 (12-20); Blood Urea Nitrogen 13 mg/dL (9-16); Calcium 10.1 mg/dL (8.4-10.2); Carbon Dioxide 32 mmol/L (22-29); Chloride 100 mmol/L (96-108); Estimated Glomerular Filt Rate 57; Glucose Random 91 mg/dL (60-115); Potassium 4.1 mmol/L (3.3-5.1); Sodium 142 mmol/L (135-145)
[2021-12-14 14:11] LABS: Calcium (PTHI) 9.8 mg/dL (8.6-10.4); PTHI 48 pg/mL (16-77)
== END 2021-12-13 09:42 | disposition home or self-care (01) ==
LOC: HO.LAB 09:41
PROVIDERS: Internal Medicine; PCP General Practice; Visit Provider Internal Medicine Endocrinology, Diabetes & Metabolism
DX: M81.0 Age-related osteoporosis without current pathological fracture (principal)
CPT/HCPCS: 36415; 80048; 82040; 83970; 99212

== ENCOUNTER → 2022-01-03 09:52 | Outpatient (BNVA) | payer OTHER, SELFPAY | PROVIDERS: PCP General Practice; Visit Provider Internal Medicine Endocrinology, Diabetes & Metabolism | DX: M81.0 Age-related osteoporosis without current pathological fracture (principal) | CPT/HCPCS: 96372 ==

== ENCOUNTER 2022-03-20 12:00 | Emergency (ER) | payer OTHER, SELFPAY ==
[2022-03-20 12:37] VITALS: BP 148/80; BP 172/98; PULSE 109; PULSE 113; RESP 14; TEMP 36.9; O2SAT 94; BMI 32.3
--- NOTE | 2022-03-20 12:45 | ED.GENADULT ---
HPI - General Adult General Chief complaint: General Medical Stated complaint: RECTAL BLEEDING [id number] Time Seen by Provider: 03/20/22 12:45 Source: patient Mode of arrival: EMS Limitations: no limitations History of Present Illness HPI narrative: patient with constipation took a laxative and then had diarrhea and developed a rectal prolapse. Onset (ago): day(s) Radiation: non-radiation Severity: mild Related Data Home Medications Medication Instructions Recorded Confirmed amlodipine 10 mg tablet 10 mg PO DAILY 08/03/20 08/19/21 docusate sodium 100 mg capsule 100 mg PO BID PRN Constipation 08/03/20 08/19/21 ferrous sulfate 325 mg (65 mg 325 mg PO BID 08/03/20 08/19/21 iron) tablet,delayed release furosemide 40 mg tablet 40 mg PO BID 08/03/20 08/19/21 lidocaine 5 % topical patch 1 patch topical DAILY 08/03/20 08/19/21 meclizine 12.5 mg tablet 12.5 mg PO TID PRN dizziness 08/03/20 08/19/21 potassium chloride 10 mEq 10 meq PO BID 04/27/21 08/19/21 tablet,extended release tiotropium bromide 18 mcg capsule 1 cap PO DAILY 04/27/21 08/19/21 with inhalation device (Spiriva with HandiHaler) zafirlukast 20 mg tablet 20 mg PO BID 04/27/21 08/19/21 albuterol sulfate 2.5 mg/3 mL 2.5 mg inhalation Q8H PRN sob 08/17/21 08/19/21 (0.083 %) solution for nebulization Previous Rx's Medication Instructions Recorded denosumab 60 mg/mL subcutaneous 60 mg subcut [id number] #1 mL 04/06/21 syringe psyllium husk 2.6 gram/4.1 gram 1 tbsp PO BID #480 grams 05/04/21 oral powder Breo Ellipta 100 mcg-25 mcg/dose 1 inh inhalation DAILY 30 days #28 07/12/21 powder for inhalation (fluticasone ea furoate-vilanterol) mirabegron 50 mg tablet,extended 50 mg PO DAILY 90 days #90 tabs 10/19/21 release 24 hr (Myrbetriq) Allergies Allergy/AdvReac Type Severity Reaction Status Date / Time sertraline [From [facility]] AdvReac Intermediate AGITATION Verified 12/13/21 09:51 Review of Systems Constitutional: Constitutional: Reports no additional constitutional complaints Eyes: Eyes: Reports no additional eye complaints ENT: Denies dizziness Cardiovascular: Cardiovascular: Reports no additional cardiovascular complaints Respiratory: Respiratory: Reports as per HPI Gastrointestinal: Gastrointestinal: Reports no additional gastrointestinal complaints Genitourinary: Genitourinary: Reports no additional female genitourinary complaints Musculoskeletal: Musculoskeletal: Reports no additional musculoskeletal complaints Integumentary/Breasts: Skin/Breast: Denies rash Neurologic: Reports system reviewed and no additional complaints, except as documented, Denies dizziness and Denies Sensory deficit (Neuro) Psychiatric: Psychiatric: Denies anxiety [facility] Past Medical History Medical History Asthma Bilateral lower extremity edema COPD (chronic obstructive pulmonary disease) COPD (chronic obstructive pulmonary disease) Goiter Hyperparathyroidism Hypertension IgG gammopathy CINDY (obstructive sleep apnea) Trigger finger, left middle finger Trigger finger, left ring finger Vitamin D deficiency Surgical History History of ear surgery History of eye surgery History of hernia surgery Family History Family History Mother Bone cancer Father No problems noted. Sister Colon cancer Bone cancer Breast cancer Brother Colon cancer Social History Social History Household Members: None Housing: Apartment Do you presently have visiting nurse or other home services: No Alcohol intake: never Patient Tobacco Use Status: Former Tobacco user Quit Date: Over 40 years ago Tobacco use type: Cigarette Cigarette Packs Per Day: 1 Years Smoked: 7 Second Hand Smoke Exposure: Yes service: No Current occupational status: retired Current occupation: right handed Physical Exam ED Vital Signs: Vital Signs - 24 hr 03/20/22 12:37 Temperature 98.4 F Pulse Rate 109 H Respiratory Rate 14 Blood Pressure 148/80 H Pulse Oximetry 94 Oxygen Delivery Method Room Air BMI result Body Mass Index 32.3 Const Other: elderly obese General: healthy appearing Orientation/consciousness: oriented to person and patient oriented x3 Limitations: no limitations HENMT Head: Yes normal to inspection Ears: external ears normal General nose exam: Normal external nose present Mouth: Normal oral and palatal mucosa present and oropharynx normal Throat: Yes posterior oropharynx normal Eyes General: appearance normal, both eyes and all related structures Neck Neck: Yes normal visual inspection Chest Chest palpation & inspection: normal inspection of the chest Resp Auscultation: clear to auscultation bilaterally Cardio Jugular venous distension: no JVD Rate: regular rate Rhythm: regular rhythm Heart sounds: S1 normal heart sound present and S2 normal heart sound present GI Inspection: Yes normal to inspection Palpation (GI): Soft to palpation, nontender and No hepatosplenomegaly present Auscultation: normal bowel sounds Other: large rectal prolopse Skin General skin exam: no rashes or lesions noted Neuro General: oriented to person and patient oriented x3 Cranial nerves: Yes CN's II-XII intact bilaterally Motor exam (neuro): 5/5 motor strength present throughout Sensory Exam: No Sensory deficit (Neuro) Extrem General: Yes normal to inspection Psych Appearance: grossly normal Course Reevaluation(s) Reevaluation #1: Discussed with Dr. Nielsen Time: 13:03 Procedures Procedure Narrative Procedure Narrative: rectal prolapse with manual reduction. Discharge Plan Discharge Clinical Impression: Rectal prolapse Patient Disposition: Home, Self-Care Instructions: Rectal Prolapse (ED) Additional Instructions: continue your fiber for constipation, must use colace daily Prescriptions: No Action denosumab 60 mg/mL syringe 60 mg subcut [id number] Qty: 1 1RF Breo Ellipta 100-25 mcg/dose blister with device 1 inh inhalation DAILY 30 Days Qty: 28 2RF Myrbetriq 50 mg tablet extended release 24 hr 50 mg PO DAILY 90 Days Qty: 90 3RF psyllium husk 2.6 gram/4.1 gram powder 1 tbsp PO BID Qty: 480 1RF Rx Instructions: mix into at least 8 oz of water or juice before administering lidocaine 5 % adhesive patch,medicated 1 patch topical DAILY ferrous sulfate 325 mg (65 mg iron) tablet,delayed release (DR/EC) 325 mg PO BID meclizine 12.5 mg tablet 12.5 mg PO TID PRN (Reason: dizziness) amlodipine 10 mg tablet 10 mg PO DAILY docusate sodium 100 mg capsule 100 mg PO BID PRN (Reason: Constipation) furosemide 40 mg tablet 40 mg PO BID potassium chloride 10 mEq tablet extended release 10 meq PO BID zafirlukast 20 mg tablet 20 mg PO BID Spiriva with HandiHaler 18 mcg capsule, w/inhalation device 1 cap PO DAILY albuterol sulfate 2.5 mg /3 mL (0.083 %) solution for nebulization 2.5 mg inhalation Q8H PRN (Reason: sob) Referrals: Vinny Nielsen MD [Physician] - 3 days
--- NOTE | 2022-03-20 13:55 | PC.NURSE ---
Rectal area assessed, no further prolapse noted at this time.
[2022-03-20 14:08] VITALS: BP 117/72; PULSE 96; RESP 16; O2SAT 94
== END 2022-03-20 14:29 | disposition home or self-care (01) ==
PROVIDERS: Emergency Provider Emergency Medicine; PCP General Practice
DX: K62.2 Anal prolapse (principal); I10 Essential (primary) hypertension; E66.9 Obesity, unspecified; Z68.32 Body mass index [BMI] 32.0-32.9, adult; Z87.891 Personal history of nicotine dependence
CPT/HCPCS: 99282